=== PATIENT | male | born 1955 | race Asian ===

== ENCOUNTER 2019-08-19 06:20 | Inpatient (IN) ==
--- NOTE | 2019-08-19 06:42 | DR.EXTPAIN ---
HPI Time seen Time Seen by Provider: 08/19/19 06:40 PCP Primary Care Physician: ANG HPI Comment HPI Comment: PATIENT IS 64YR OLD MALE IN ER WITH INCREASING SWELLING AND REDNESS AND PAIN RIGHT FOOT AND ANKLE DUE TO PUNCTURE WOUND SUSTAINED FEW WEEKS AGO. PATIENT IS CURRENTLY ON AUDMENTING. DENIES FEVER. SLIGHT DRAINAGE AT PUNCTURE WOUND SITE. PAIN IS THROBBING 7/10 PAIN RADIATING TO RIGHT LEG. Complaint/Symptoms Chief Complaint Doctor Comments: RIGHT FOOT SWELLING, REDNESS AND PAIN TIMES 18 DAYS. Chief Complaint:: PATIENT AMBULATORY INTO TRIAGE WITH C/O CELLULITIS TO RIGHT FOOT; PATIENT WAS AT THIS ER ONE WEEK AGO AND RECEIVED PRESCRIPTION FOR ANTIBIOTIC. PATIENT STATES IT IS NOT ANY BETTER. REDNESS NOTED TO TOP OF RIGHT FOOT; PATIENT STATES PAIN IS 7/10. PATIENT HAS HX OF DIABETES COVID-19 Coronavirus risk:travel/contact w/high risk person: No Has patient experienced Coronavirus symptoms: No Nurses notes reviewed Nurses Notes Review: Yes Source History Provided: Family Member Mode of arrival Mode of Arrival: Ambulatory Timing Onset of Chief Complaint: 08/11/19 Context History of: None Associated signs and symptoms Associated Signs and Symptoms: Pain and Swelling PMH PMH Past Medical History: Yes Past Medical History: Diabetes and Hypertension Past Surgical History: No Family History History of Family Medical Conditions: No Social History Alcohol Use: None Do you use any recreational Drugs:: No Lives With: Spouse Lives Where: Home Travel Risk Coronavirus risk:travel/contact w/high risk person: No Has patient experienced Coronavirus symptoms: No Infectious screening In the last 2 months have you had wt loss of >10#?: NO Have you had fever, night sweats or hemotysis?: No Have you traveled outside the country in the last 6 months?: No Isolation: Standard ROS Review of Systems Constitutional: No Symptoms Reported and See HPI; negative Fever, Weakness and Fatigue Eyes: No Symptoms Reported and See HPI ENTM: No Symptoms Reported and See HPI; negative Nose Discharge, Nose Congestion and Throat Pain Respiratoy: No Symptoms Reported and See HPI; negative Moist Cough, Short of Breath and Wheezing Cardiovascular: No Symptoms Reported, See HPI and Edema (RIGHT FOOT AND ANKLE.); negative Chest Pain and Palpitations Gastrointestinal/Abdominal: No Symptoms Reported and See HPI; negative Abdominal Pain, Diarrhea, Nausea and Vomiting Genitourinary: No Symptoms Reported and See HPI; negative Dysuria, Frequency and Hematuria Neurological: No Symptoms Reported and See HPI; negative Headache, Weakness and Dizziness Musculoskeletal: No Symptoms Reported and See HPI; negative Back Pain Integumentary: See HPI, Change in Color and Wound (ABSCESS AND CELLULITIS RT FOOT AND ANKLE.) Hematologic/Lymphatic: No Symptoms Reported and See HPI; negative Easy Bruising and Swollen Glands Endocrine: No Symptoms Reported; negative Increased Thirst and Increased Urine Psychiatric: No Symptoms Reported and See HPI All Other Systems: Reviewed and Negative PE Vital Signs Vitals: Temperature 97.6 F Pulse Rate 98 Respiratory Rate 20 Blood Pressure [Left Arm] 192/89 Blood Pressure 173/74 O2 Sat by Pulse Oximetry 95 General Limitations: Language Barrier (PATIENT SPEAK [place], NO ENFLISH. SPOKE TO HIM VIA COMB CAPPER.) General Appearance: Alert and In No Apparent Distress Head Head Exam: Normal Inspection and Atraumatic Eyes Eye exam: Normal Appearance and PERRL; negative Scleral Icterus and Conjunctival Injection ENT ENT Exam: Normal Exam, Normal Oropharynx, Normal External Ear Exam and TM's Normal Bilaterally Neck Neck Exam: Normal Inspection and Trachea Midline; negative Tenderness and Lymphadenopathy Chest Chest Inspection: Normal Inspection and Symmetric Chest Wall Rise; negative Tenderness Respiratory Respiratory Exam: Normal Lung Sounds Bilat; negative Accessory Muscle Use, Chest Wall Tenderness and Respiratory Distress Respiratory Exam: Bilateral: Clear to Auscultation Cardiovascular Cardiovascular Exam: Regular Rate, Normal Rhythm and Normal Heart Sounds; negative Systolic Murmur and Diastolic Murmur Abdominal Exam Abdominal Exam: Normal Inspection, Normal Bowel Sounds and Soft; negative Tenderness Extremities Extremities Exam: Tenderness (RIGHT FOOT AND ANKLE TENDERNESS AND SWELLING.) and Normal Capillary Refill; negative Edema and Calf Tenderness Lower Extremities Ankle Exam: Tenderness, Swelling and Erythema Back Back Exam: Normal Inspection; negative (R) CVA Tenderness and (L) CVA Tenderness MDM Differential Diagnosis Differential Diagnosis: Other (ABSCESS, CELLULITIS RIGHT FOOT AND ANKLE.) COURSE Treatment Treatment: SEE ORDERS. VANCOMYCIN 1GM IVPB. NS 125CC/HR. ROR Labs Reviewed Laboratory Results Reviewed?: Yes Result Diagrams: 08/20/19 04:12 08/20/19 20:27 Laboratory: WBC 10.2 X10^3/uL (3.6-10.0) H 08/19/19 07:08 RBC 5.71 X10^6/uL (4.7-6.0) 08/19/19 07:08 Hgb 16.1 g/dL (13.5-18.0) 08/19/19 07:08 Hct 46.7 % (42.0-54.0) 08/19/19 07:08 MCV 81.8 fL (80.0-100.0) 08/19/19 07:08 MCH 28.1 pg (27.0-34.0) 08/19/19 07:08 MCHC 34.4 g/dL (33.0-35.0) 08/19/19 07:08 RDW 13.2 % (11.6-16.5) 08/19/19 07:08 Plt Count 272 X10^3/uL (150.0-450.0) 08/19/19 07:08 MPV 7.4 fL (7.4-11.0) 08/19/19 07:08 Neut % (Auto) 74.1 % (42.0-75.0) 08/19/19 07:08 Lymph % (Auto) 15.9 % (21.0-51.0) L 08/19/19 07:08 [place] % (Auto) 8.8 % (0.0-13.0) 08/19/19 07:08 Eos % (Auto) 0.3 % (0.9-2.9) L 08/19/19 07:08 Baso % (Auto) 0.9 % (0.2-1.0) 08/19/19 07:08 Neut # (Auto) 7.5 x10^3/uL (2.2-4.8) H 08/19/19 07:08 Lymph # (Auto) 1.6 X10^3/uL (1.3-2.9) 08/19/19 07:08 [place] # (Auto) 0.9 x10^3/uL (0.3-0.8) H 08/19/19 07:08 Eos # (Auto) 0.0 x10^3/uL (0.0-0.2) 08/19/19 07:08 Baso # (Auto) 0.1 X10^3/uL (0.0-0.1) 08/19/19 07:08 Absolute Nucleated RBC 0.1 /100WBC 08/19/19 07:08 Sodium 133 mmol/L (136-145) L 08/19/19 07:08 Corrected Sodium 141 mmol/L (136-145) 08/19/19 07:08 Potassium 4.4 mmol/L (3.5-5.1) 08/19/19 07:08 Chloride 96 mmol/L (98-107) L 08/19/19 07:08 Carbon Dioxide 25.9 mmol/L (21-32) 08/19/19 07:08 BUN 13 mg/dL (7-18) 08/19/19 07:08 Creatinine 0.81 mg/dL (0.70-1.30) 08/19/19 07:08 Est GFR (MDRD) Af Amer > 60 (>60) 08/19/19 07:08 Est GFR (MDRD) Non-Af > 60 (>60) 08/19/19 07:08 Glucose 447 mg/dL (65-99) H 08/19/19 07:08 Lactic Acid 1.6 mmol/L (0.4-2.0) 08/19/19 07:08 Calcium 9.2 mg/dL (8.5-10.1) 08/19/19 07:08 Corrected Calcium 9.8 mg/dL (8.5-10.1) 08/19/19 07:08 Total Bilirubin 0.60 mg/dL (0.2-1.0) 08/19/19 07:08 AST 9 Units/L (15-37) L 08/19/19 07:08 ALT 16 Units/L (12-78) 08/19/19 07:08 Alkaline Phosphatase 150 Units/L (46-116) H 08/19/19 07:08 C-Reactive Protein 71.60 mg/L (0-3.0) H 08/19/19 07:08 Total Protein 7.8 g/dL (6.4-8.2) 08/19/19 07:08 Albumin 3.3 g/dL (3.4-5.0) L 08/19/19 07:08 Globulin 4.5 g/dL (2.5-4.5) 08/19/19 07:08 Albumin/Globulin Ratio 0.7 Ratio (1.1-2.1) L 08/19/19 07:08 Acetone, Semi-Quant Negative (NEGATIVE) 08/19/19 07:08 Opioid Opioid Risk Tool Age ([place] if 16-45): No History of Preadolescent Sexual Abuse: No Total: 0 Total Score Risk Category: Low Risk Copyright: Wolfgang KEENAN predicting aberrant behaviors Diagnosis Discharge Problem: Cellulitis of foot, right, Abscess of right foot, Hyperglycemia Hypertension Qualifiers: Hypertension type: essential hypertension Qualified Code(s): I10 - Essential (primary) hypertension Instructions Forms: Excuse From Work Precautions for COVID19 Patient Portal Social Distancing
--- NOTE | 2019-08-19 07:10 | RAD ---
HISTORYCELLULITIS RT FOOT, PAIN AND REDNESS TO TOP OF RT FOOT X 1 WEEKSTUDYFOOT, RIGHT x-ray three viewsCOMPARISONNoneFINDINGSNo fracture or dislocation.Soft tissue swelling is seen in the dorsum of the foot. No radiopaque foreign body or gas is seen.No arthritic change are seen.IMPRESSIONSoft tissue swelling without evidence of bony abnormality.Electronically signed by: River Salamanca (August 19, 2019 07:09:02)
[2019-08-19 07:26] LABS: BASOPHILS # (AUTO) 0.1 X10^3/uL (0.0-0.1); BASOPHILS % (AUTO) 0.9 % (0.2-1.0); EOSINOPHILS % (AUTO) 0.3 % (0.9-2.9); HEMATOCRIT 46.7 % (42.0-54.0); HEMOGLOBIN 16.1 g/dL (13.5-18.0); LYMPHOCYTES # (AUTO) 1.6 X10^3/uL (1.3-2.9); LYMPHOCYTES % (AUTO) 15.9 % (21.0-51.0); MEAN CORPUSCULAR HEMOGLOBIN 28.1 pg (27.0-34.0); MEAN CORPUSCULAR HGB CONC 34.4 g/dL (33.0-35.0); MEAN CORPUSCULAR VOLUME 81.8 fL (80.0-100.0); MEAN PLATELET VOLUME 7.4 fL (7.4-11.0); MONOCYTES # (AUTO) 0.9 x10^3/uL (0.3-0.8); MONOCYTES % (AUTO) 8.8 % (0.0-13.0); NEUTROPHILS # (AUTO) 7.5 x10^3/uL (2.2-4.8); NEUTROPHILS % (AUTO) 74.1 % (42.0-75.0); PLATELET COUNT 272 X10^3/uL (150.0-450.0); RED BLOOD COUNT 5.71 X10^6/uL (4.7-6.0); RED CELL DISTRIBUTION WIDTH 13.2 % (11.6-16.5); WHITE BLOOD COUNT 10.2 X10^3/uL (3.6-10.0)
[2019-08-19 07:36] LABS: ALANINE AMINOTRANSFERASE 16 Units/L (12-78); ALBUMIN 3.3 g/dL (3.4-5.0); ALKALINE PHOSPHATASE 150 Units/L (46-116); ASPARTATE AMINO TRANSFERASE 9 Units/L (15-37); BLOOD UREA NITROGEN 13 mg/dL (7-18); CALCIUM 9.2 mg/dL (8.5-10.1); CARBON DIOXIDE 25.9 mmol/L (21-32); CHLORIDE 96 mmol/L (98-107); COR CA(FOR HYPOALB) 9.8 mg/dL (8.5-10.1); COR NA(FOR HYPERGLY) 141 mmol/L (136-145); CREATININE 0.81 mg/dL (0.70-1.30); SODIUM 133 mmol/L (136-145); TOTAL PROTEIN 7.8 g/dL (6.4-8.2); eGFR NON BLACK RACES > 60 (>60)
[2019-08-19] MEDS ORDERED: NS 250 ML IV 250 ML IV ONE ×2 (08:25→08:27)
[2019-08-19] MEDS ORDERED: VANCOMYCIN HCL ONE (08:25)
[2019-08-19] MEDS: VANCOMYCIN HCL 1 G in D5W 250 ML IV 250 ML IV ONE ×2 (08:33→08:34)
[2019-08-19] MEDS ORDERED: HumuLIN R SC PRN (11:46)
[2019-08-19] MEDS ORDERED: ZESTRIL TAB 10 MG PO SCH (12:00)
[2019-08-19] MEDS ORDERED: MOTRIN TAB 600 MG PO PRN (12:02)
[2019-08-19] MEDS ORDERED: MORPHINE SULFATE INJ 2 MG INJ IVP PRN (12:02)
[2019-08-19] MEDS ORDERED: VANCOMYCIN HCL 1 G in D5W 250 ML IV 250 ML IV SCH (12:02)
[2019-08-19] MEDS ORDERED: ZOFRAN TAB 4 MG PO PRN (12:02)
[2019-08-19] MEDS: NS 1000 ML 1,000 ML IV SCH ×2 (12:45→19:57)
[2019-08-19] MEDS: ZESTRIL TAB 10 MG PO SCH (13:55)
[2019-08-19] MEDS: PERCOCET TAB 5/325 MG PO PRN ×2 (13:58→23:43)
[2019-08-19] MEDS: HumuLIN R SC PRN ×3 (14:15→21:30)
[2019-08-19] MEDS ORDERED: ADACEL or BOOSTRIX TDaP VACCINE IM ONE (14:23)
[2019-08-19] MEDS: WOUND CARE XX SCH (18:00)
[2019-08-19] MEDS ORDERED: ZOCOR TAB 20 MG PO SCH (21:00)
[2019-08-19] MEDS: VANCOMYCIN HCL 1 G in NS 250 ML IV 250 ML IV SCH (21:14)
[2019-08-19] MEDS: ZOCOR TAB 20 MG PO SCH (21:14)
[2019-08-20] MEDS: NS 1000 ML 1,000 ML IV SCH ×3 (00:40→13:42)
[2019-08-20] MEDS: WOUND CARE XX SCH ×2 (01:44→13:42)
[2019-08-20 05:21] LABS: BASOPHILS % (AUTO) 0.4 % (0.2-1.0); EOSINOPHILS # (AUTO) 0.1 x10^3/uL (0.0-0.2); EOSINOPHILS % (AUTO) 0.8 % (0.9-2.9); HEMATOCRIT 41.1 % (42.0-54.0); HEMOGLOBIN 14.1 g/dL (13.5-18.0); LYMPHOCYTES # (AUTO) 2.3 X10^3/uL (1.3-2.9); LYMPHOCYTES % (AUTO) 26.9 % (21.0-51.0); MEAN CORPUSCULAR HEMOGLOBIN 27.9 pg (27.0-34.0); MEAN CORPUSCULAR HGB CONC 34.3 g/dL (33.0-35.0); MEAN CORPUSCULAR VOLUME 81.5 fL (80.0-100.0); MEAN PLATELET VOLUME 7.6 fL (7.4-11.0); MONOCYTES # (AUTO) 0.8 x10^3/uL (0.3-0.8); MONOCYTES % (AUTO) 8.9 % (0.0-13.0); NEUTROPHILS # (AUTO) 5.5 x10^3/uL (2.2-4.8); PLATELET COUNT 243 X10^3/uL (150.0-450.0); RED BLOOD COUNT 5.04 X10^6/uL (4.7-6.0); RED CELL DISTRIBUTION WIDTH 13.2 % (11.6-16.5); WHITE BLOOD COUNT 8.7 X10^3/uL (3.6-10.0)
[2019-08-20 05:31] LABS: ALANINE AMINOTRANSFERASE 15 Units/L (12-78); ALBUMIN 2.7 g/dL (3.4-5.0); ALKALINE PHOSPHATASE 120 Units/L (46-116); ASPARTATE AMINO TRANSFERASE 10 Units/L (15-37); BLOOD UREA NITROGEN 14 mg/dL (7-18); CALCIUM 8.5 mg/dL (8.5-10.1); CARBON DIOXIDE 26.8 mmol/L (21-32); CHLORIDE 100 mmol/L (98-107); COR CA(FOR HYPOALB) 9.5 mg/dL (8.5-10.1); COR NA(FOR HYPERGLY) 139 mmol/L (136-145); CREATININE 0.76 mg/dL (0.70-1.30); SODIUM 135 mmol/L (136-145); TOTAL PROTEIN 6.5 g/dL (6.4-8.2); eGFR NON BLACK RACES > 60 (>60)
[2019-08-20] MEDS: HumuLIN R SC PRN ×4 (06:11→21:30)
[2019-08-20] MEDS: ZESTRIL TAB 10 MG PO SCH (09:04)
[2019-08-20] MEDS: VANCOMYCIN HCL 1 G in NS 250 ML IV 250 ML IV SCH (09:04)
[2019-08-20 10:17] VITALS: BMI 29.5
--- NOTE | 2019-08-20 10:32 | DR.H&P ---
H&P History & Physical for Day of: H&P Date: 08/19/19 Chief Complaint Chief Complaint: Foot pain and redness Allergies Allergies Allergy/AdvReac Type Severity Reaction Status Date / Time No Known Drug Allergies Allergy Verified 08/10/19 21:43 History of Present Illness History of Present Illness: Patient presents due to right foot injury that occurred a week ago while he was working in the yard. He had a nail punctured on top of the foot. He came to the ED then and had X-ray done which showed soft tissue swelling. He was given oral antibiotics. His foot has been worsening since then with increased pain and swelling. He also noticed some drainage. Denies fever or chills. He has a hx of uncontrolled diabetes. Ed work up: repeat X-ray : no bony destruction. Crp elevated. Started on IV Vanc and fluids. Plan: continue antibiotics, follow cultures , [place] area and monitor. Resume home medication. Add SSI and pain control. Give Tdap. Past Medical History Past Medical History: Diabetes and Hypertension Past Surgical History Surgical History: Other Family History Family Medical History: Diabetes Mellitus Social History Does patient currently use any type of tobacco product: No Have you used tobacco products in the last 12 months: No Type of Tobacco Use: None Does any household member use tobacco: No Alcohol Use: None Drug Use: None Prescription drug monitoring program results: PDMP was not reviewed Medications Home Medications: No Known Drug Allergies Allergy (Verified 08/10/19 21:43) CONTINUE taking the following medications amoxicillin-pot clavulanate [Augmentin] 1 tab PO BID 08/19/19 [History] glipizide 5 mg PO DAILY 08/19/19 [History] lisinopril 10 mg PO DAILY 08/19/19 [History] metformin 500 mg PO BID 08/19/19 [History] Labs Result Diagrams: 08/20/19 04:12 08/20/19 04:12 Labs: Laboratory WBC 8.7 X10^3/uL (3.6-10.0) 08/20/19 04:12 RBC 5.04 X10^6/uL (4.7-6.0) 08/20/19 04:12 Hgb 14.1 g/dL (13.5-18.0) D 08/20/19 04:12 Hct 41.1 % (42.0-54.0) L 08/20/19 04:12 MCV 81.5 fL (80.0-100.0) 08/20/19 04:12 MCH 27.9 pg (27.0-34.0) 08/20/19 04:12 MCHC 34.3 g/dL (33.0-35.0) 08/20/19 04:12 RDW 13.2 % (11.6-16.5) 08/20/19 04:12 Plt Count 243 X10^3/uL (150.0-450.0) 08/20/19 04:12 MPV 7.6 fL (7.4-11.0) 08/20/19 04:12 Neut % (Auto) 63.0 % (42.0-75.0) 08/20/19 04:12 Lymph % (Auto) 26.9 % (21.0-51.0) 08/20/19 04:12 [place] % (Auto) 8.9 % (0.0-13.0) 08/20/19 04:12 Eos % (Auto) 0.8 % (0.9-2.9) L 08/20/19 04:12 Baso % (Auto) 0.4 % (0.2-1.0) 08/20/19 04:12 Neut # (Auto) 5.5 x10^3/uL (2.2-4.8) H 08/20/19 04:12 Lymph # (Auto) 2.3 X10^3/uL (1.3-2.9) 08/20/19 04:12 [place] # (Auto) 0.8 x10^3/uL (0.3-0.8) 08/20/19 04:12 Eos # (Auto) 0.1 x10^3/uL (0.0-0.2) 08/20/19 04:12 Baso # (Auto) 0.0 X10^3/uL (0.0-0.1) 08/20/19 04:12 Absolute Nucleated RBC 0.0 /100WBC 08/20/19 04:12 Sodium 135 mmol/L (136-145) L 08/20/19 04:12 Corrected Sodium 139 mmol/L (136-145) 08/20/19 04:12 Potassium 3.9 mmol/L (3.5-5.1) 08/20/19 04:12 Chloride 100 mmol/L (98-107) 08/20/19 04:12 Carbon Dioxide 26.8 mmol/L (21-32) 08/20/19 04:12 BUN 14 mg/dL (7-18) 08/20/19 04:12 Creatinine 0.76 mg/dL (0.70-1.30) 08/20/19 04:12 Est GFR (MDRD) Af Amer > 60 (>60) 08/20/19 04:12 Est GFR (MDRD) Non-Af > 60 (>60) 08/20/19 04:12 Glucose 272 mg/dL (65-99) H 08/20/19 04:12 Lactic Acid 1.6 mmol/L (0.4-2.0) 08/19/19 07:08 Calcium 8.5 mg/dL (8.5-10.1) 08/20/19 04:12 Corrected Calcium 9.5 mg/dL (8.5-10.1) 08/20/19 04:12 Total Bilirubin 0.40 mg/dL (0.2-1.0) 08/20/19 04:12 AST 10 Units/L (15-37) L 08/20/19 04:12 ALT 15 Units/L (12-78) 08/20/19 04:12 Alkaline Phosphatase 120 Units/L (46-116) H 08/20/19 04:12 C-Reactive Protein 71.60 mg/L (0-3.0) H 08/19/19 07:08 Total Protein 6.5 g/dL (6.4-8.2) 08/20/19 04:12 Albumin 2.7 g/dL (3.4-5.0) L 08/20/19 04:12 Globulin 3.8 g/dL (2.5-4.5) 08/20/19 04:12 Albumin/Globulin Ratio 0.7 Ratio (1.1-2.1) L 08/20/19 04:12 Acetone, Semi-Quant Negative (NEGATIVE) 08/19/19 07:08 Review of Systems Constitutional: No Symptoms Reported Eyes: No Symptoms Reported ENT: No Symptoms Reported Respiratory: No Symptoms Reported Cardiovascular: No Symptoms Reported Gastrointestinal: No Symptoms Reported Genitourinary: No Symptoms Reported Musculoskeletal: Foot Pain Skin: Wound Neurological: No Symptoms Reported Physical Exam Vital Signs: Temperature 97.8 F Pulse Rate [Right Brachial] 70 Pulse Rate [Left Brachial] 80 Pulse Rate 98 Respiratory Rate 18 Blood Pressure [Left Arm] 197/87 Blood Pressure 173/74 O2 Sat by Pulse Oximetry 98 Oriented: Normal Eyes: Normal Respiratory: Clear Throughout Cardiovascular: Normal Auscultation: Bowel Sounds: Normal Palpation: Normal Tenderness: Normal Skin: Wound and Other (Right foot erythrmatous, puntcure wound present, warm , tender ) Musculoskeletal: Normal Psychiatric: Normal Mood Description: Calm Affect: Normal Speech Pattern: Clear and Appropriate Assessment/Plan (1) Cellulitis of right foot: Status: Acute (2) Puncture wound of foot, right: Qualifiers: Encounter type: initial encounter Qualified Code(s): S91.331A - Puncture wound without foreign body, right foot, initial encounter Status: Acute (3) Hypertension, uncontrolled: Status: Acute (4) Uncontrolled diabetes mellitus: Qualifiers: Diabetes mellitus type: type 2 Glycemic state: with hyperglycemia Qualified Code(s): E11.65 - Type 2 diabetes mellitus with hyperglycemia Status: Acute Review H&P Reviewed: Yes Patient was examined?: Yes
[2019-08-20] MEDS: NORVASC TAB 10 MG PO SCH (13:42)
[2019-08-20] MEDS: ZESTRIL TAB 40 MG PO SCH (13:43)
[2019-08-20] MEDS: PERCOCET TAB 5/325 MG PO PRN (17:15)
[2019-08-20 20:57] LABS: CREATININE 0.73 mg/dL (0.70-1.30); VANCOMYCIN,TROUGH 4.5 ug/mL (15-20)
[2019-08-20] MEDS: ZOCOR TAB 20 MG PO SCH (21:26)
[2019-08-20] MEDS ORDERED: PHARMACY CONSULT - VANCOMYCIN XX SCH (21:34)
[2019-08-20] MEDS: VANCOMYCIN HCL 1 G in D5W 250 ML IV 250 ML IV SCH (21:56)
[2019-08-21] MEDS: WOUND CARE XX SCH ×3 (03:00→12:59)
[2019-08-21] MEDS: NS 1000 ML 1,000 ML IV SCH ×4 (04:56→21:32)
[2019-08-21] MEDS: VANCOMYCIN HCL 1 G in D5W 250 ML IV 250 ML IV SCH ×2 (05:13→13:05)
[2019-08-21] MEDS: HumuLIN R SC PRN ×4 (05:36→21:33)
[2019-08-21 06:12] LABS: BASOPHILS # (AUTO) 0.1 X10^3/uL (0.0-0.1); BASOPHILS % (AUTO) 0.7 % (0.2-1.0); EOSINOPHILS # (AUTO) 0.1 x10^3/uL (0.0-0.2); EOSINOPHILS % (AUTO) 0.6 % (0.9-2.9); HEMATOCRIT 41.9 % (42.0-54.0); HEMOGLOBIN 14.4 g/dL (13.5-18.0); LYMPHOCYTES # (AUTO) 2.2 X10^3/uL (1.3-2.9); LYMPHOCYTES % (AUTO) 20.8 % (21.0-51.0); MEAN CORPUSCULAR HEMOGLOBIN 28.1 pg (27.0-34.0); MEAN CORPUSCULAR HGB CONC 34.3 g/dL (33.0-35.0); MEAN CORPUSCULAR VOLUME 81.8 fL (80.0-100.0); MEAN PLATELET VOLUME 7.8 fL (7.4-11.0); MONOCYTES # (AUTO) 0.9 x10^3/uL (0.3-0.8); MONOCYTES % (AUTO) 8.5 % (0.0-13.0); NEUTROPHILS # (AUTO) 7.4 x10^3/uL (2.2-4.8); NEUTROPHILS % (AUTO) 69.4 % (42.0-75.0); PLATELET COUNT 251 X10^3/uL (150.0-450.0); RED BLOOD COUNT 5.13 X10^6/uL (4.7-6.0); RED CELL DISTRIBUTION WIDTH 12.9 % (11.6-16.5); WHITE BLOOD COUNT 10.7 X10^3/uL (3.6-10.0)
[2019-08-21 06:27] LABS: ALANINE AMINOTRANSFERASE 16 Units/L (12-78); ALBUMIN 2.7 g/dL (3.4-5.0); ALKALINE PHOSPHATASE 94 Units/L (46-116); ASPARTATE AMINO TRANSFERASE 12 Units/L (15-37); BLOOD UREA NITROGEN 8 mg/dL (7-18); CALCIUM 8.5 mg/dL (8.5-10.1); CARBON DIOXIDE 28.4 mmol/L (21-32); CHLORIDE 97 mmol/L (98-107); COR CA(FOR HYPOALB) 9.5 mg/dL (8.5-10.1); COR NA(FOR HYPERGLY) 137 mmol/L (136-145); SODIUM 133 mmol/L (136-145); TOTAL PROTEIN 6.5 g/dL (6.4-8.2); eGFR NON BLACK RACES > 60 (>60)
[2019-08-21 06:35] LABS: PLATELET MORPHOLOGY COMMENT NORMAL (NORMAL)
[2019-08-21] MEDS: ZESTRIL TAB 40 MG PO SCH (09:15)
[2019-08-21] MEDS: NORVASC TAB 10 MG PO SCH (09:15)
[2019-08-21] MEDS ORDERED: NORCO 10/325 TAB PO PRN (12:40)
[2019-08-21] MEDS ORDERED: TOPROL XL PO ONE (13:01)
[2019-08-21] MEDS: GLUCOPHAGE XR 24-HR PO SCH ×2 (13:05→21:32)
[2019-08-21] MEDS: ACTOS PO SCH (13:06)
[2019-08-21] MEDS: TOPROL XL PO SCH (13:06)
[2019-08-21] MEDS ORDERED: PHARMACY COMMENT IV NR (20:30)
[2019-08-21 20:49] LABS: CREATININE 0.81 mg/dL (0.70-1.30); VANCOMYCIN,TROUGH 9.7 ug/mL (15-20)
[2019-08-21] MEDS ORDERED: NS 250 ML IV 250 ML IV ONE (21:15)
[2019-08-21] MEDS ORDERED: VANCOMYCIN HCL ONE ×2 (21:15→21:16)
[2019-08-21] MEDS: ZOCOR TAB 20 MG PO SCH (21:32)
[2019-08-21] MEDS: VANCOMYCIN HCL 1 G in NS 250 ML IV 250 ML IV SCH (21:33)
[2019-08-21] MEDS: VANCOMYCIN HCL 250 MG, VANCOMYCIN HCL 1 G in D5W 250 ML IV 250 ML IV SCH (21:33)
[2019-08-22] MEDS: WOUND CARE XX SCH (04:26)
[2019-08-22] MEDS: NS 1000 ML 1,000 ML IV SCH (04:27)
[2019-08-22 05:07] LABS: BASOPHILS % (AUTO) 0.4 % (0.2-1.0); EOSINOPHILS % (AUTO) 0.4 % (0.9-2.9); HEMATOCRIT 40.4 % (42.0-54.0); LYMPHOCYTES % (AUTO) 20.9 % (21.0-51.0); MEAN CORPUSCULAR HEMOGLOBIN 28.5 pg (27.0-34.0); MEAN CORPUSCULAR HGB CONC 34.6 g/dL (33.0-35.0); MEAN CORPUSCULAR VOLUME 82.4 fL (80.0-100.0); MEAN PLATELET VOLUME 7.7 fL (7.4-11.0); MONOCYTES # (AUTO) 0.9 x10^3/uL (0.3-0.8); MONOCYTES % (AUTO) 9.2 % (0.0-13.0); NEUTROPHILS # (AUTO) 6.7 x10^3/uL (2.2-4.8); NEUTROPHILS % (AUTO) 69.1 % (42.0-75.0); PLATELET COUNT 258 X10^3/uL (150.0-450.0); RED CELL DISTRIBUTION WIDTH 13.1 % (11.6-16.5); WHITE BLOOD COUNT 9.6 X10^3/uL (3.6-10.0)
[2019-08-22 05:12] LABS: ALANINE AMINOTRANSFERASE 15 Units/L (12-78); ALBUMIN 2.6 g/dL (3.4-5.0); ALKALINE PHOSPHATASE 97 Units/L (46-116); ASPARTATE AMINO TRANSFERASE 13 Units/L (15-37); BLOOD UREA NITROGEN 11 mg/dL (7-18); CALCIUM 8.6 mg/dL (8.5-10.1); CARBON DIOXIDE 26.7 mmol/L (21-32); CHLORIDE 99 mmol/L (98-107); COR CA(FOR HYPOALB) 9.7 mg/dL (8.5-10.1); COR NA(FOR HYPERGLY) 139 mmol/L (136-145); CREATININE 0.62 mg/dL (0.70-1.30); SODIUM 135 mmol/L (136-145); TOTAL PROTEIN 6.4 g/dL (6.4-8.2); eGFR NON BLACK RACES > 60 (>60)
[2019-08-22] MEDS ORDERED: NS 250 ML IV 250 ML IV ONE (05:41)
[2019-08-22] MEDS ORDERED: VANCOMYCIN HCL ONE ×2 (05:41)
[2019-08-22] MEDS: VANCOMYCIN HCL 250 MG, VANCOMYCIN HCL 1 G in D5W 250 ML IV 250 ML IV SCH ×2 (05:57→05:58)
[2019-08-22] MEDS: HumuLIN R SC PRN ×2 (05:58→11:44)
[2019-08-22 08:06] VITALS: BP 143/64
[2019-08-22] MEDS ORDERED: TOPROL XL PO ONE (08:15)
[2019-08-22] MEDS: NORVASC TAB 10 MG PO SCH (08:19)
[2019-08-22] MEDS: ZESTRIL TAB 40 MG PO SCH (08:19)
[2019-08-22] MEDS: GLUCOPHAGE XR 24-HR PO SCH (08:20)
[2019-08-22] MEDS: ACTOS PO SCH (08:20)
[2019-08-22] MEDS: TOPROL XL PO SCH (08:20)
--- NOTE | 2019-08-22 10:21 | W.DIS.FURT ---
Summary of Discharge Discharge Summary of Date Date of Exam: 08/22/19 Admission Date Date of Admission: 08/19/19 Admission Diagnosis Hospital Course: Patient presents due to right foot injury that occurred a week ago while he was working in the yard. He had a nail punctured on top of the foot. He came to the ED then and had X-ray done which showed soft tissue swelling. He was given oral antibiotics. His foot has been worsening since then with increased pain and swelling. Denies fever or chills. He has a hx of uncontrolled diabetes. Repeat X-ray : no bony destruction. Crp elevated. He was started on IV Vanc and fluids. Blood cultures were collected and area was marked to monitor. His diabetic medications and BP medications were optimized due to uncontrolled hyperglycemia and blood pressure. He was given a Tdap vaccination. His blood cultures remained negative. His foot erythema was improving with the antibiotics. He was transitioned to oral abx and disharged home. He will follow up with PCP as scheduled. Vital Signs: Vital Signs (72 hours) 08/19/19 11:12 08/19/19 11:46 08/19/19 12:00 Temperature 98.3 F 98.3 F Pulse Rate [Left Brachial] 81 80 80 Pulse Rate [Right Brachial] 80 80 Respiratory Rate 20 20 20 Blood Pressure [Left Arm] 195/80 183/81 183/81 O2 Sat by Pulse Oximetry 95 08/19/19 13:58 08/19/19 14:58 08/19/19 16:00 Temperature 98.5 F Pulse Rate [Left Brachial] Pulse Rate [Right Brachial] 85 Respiratory Rate 18 20 20 Blood Pressure [Left Arm] 180/81 O2 Sat by Pulse Oximetry 93 L 08/19/19 20:00 08/19/19 23:43 08/20/19 00:00 Temperature 97.5 F L 98.0 F Pulse Rate [Left Brachial] Pulse Rate [Right Brachial] 75 76 Respiratory Rate 20 20 20 Blood Pressure [Left Arm] 159/85 198/88 O2 Sat by Pulse Oximetry 96 97 08/20/19 00:43 08/20/19 04:00 08/20/19 08:00 Temperature 97.8 F 97.9 F Pulse Rate [Left Brachial] Pulse Rate [Right Brachial] 70 79 Respiratory Rate 20 18 20 Blood Pressure [Left Arm] 197/87 183/76 O2 Sat by Pulse Oximetry 98 98 08/20/19 12:00 08/20/19 16:00 08/20/19 17:15 Temperature 98.8 F 97.9 F Pulse Rate [Left Brachial] 85 Pulse Rate [Right Brachial] 88 Respiratory Rate 20 22 22 Blood Pressure [Left Arm] 208/93 201/72 O2 Sat by Pulse Oximetry 99 98 08/20/19 18:15 08/20/19 18:27 08/20/19 20:00 Temperature 98.5 F Pulse Rate [Left Brachial] Pulse Rate [Right Brachial] 89 Respiratory Rate 20 20 20 Blood Pressure [Left Arm] 161/67 157/72 O2 Sat by Pulse Oximetry 96 97 08/21/19 00:00 08/21/19 04:00 08/21/19 08:00 Temperature 98.0 F 98.2 F 98.7 F Pulse Rate [Left Brachial] Pulse Rate [Right Brachial] 80 84 82 Respiratory Rate 22 22 18 Blood Pressure [Left Arm] 174/77 169/77 185/82 O2 Sat by Pulse Oximetry 98 97 96 08/21/19 12:00 08/21/19 16:00 08/21/19 20:00 Temperature 98.6 F 97.6 F 98.8 F Pulse Rate [Left Brachial] Pulse Rate [Right Brachial] 86 79 72 Respiratory Rate 18 18 18 Blood Pressure [Left Arm] 167/74 152/71 148/71 O2 Sat by Pulse Oximetry 98 97 97 08/22/19 00:00 08/22/19 04:00 08/22/19 08:00 Temperature 98.6 F 98.7 F 98.5 F Pulse Rate [Left Brachial] Pulse Rate [Right Brachial] 61 68 67 Respiratory Rate 20 18 18 Blood Pressure [Left Arm] 171/76 159/72 143/64 O2 Sat by Pulse Oximetry 95 94 L 98 Labs: Laboratory Last Values WBC 9.6 X10^3/uL (3.6-10.0) 08/22/19 04:02 RBC 4.90 X10^6/uL (4.7-6.0) 08/22/19 04:02 Hgb 14.0 g/dL (13.5-18.0) 08/22/19 04:02 Hct 40.4 % (42.0-54.0) L 08/22/19 04:02 MCV 82.4 fL (80.0-100.0) 08/22/19 04:02 MCH 28.5 pg (27.0-34.0) 08/22/19 04:02 MCHC 34.6 g/dL (33.0-35.0) 08/22/19 04:02 RDW 13.1 % (11.6-16.5) 08/22/19 04:02 Plt Count 258 X10^3/uL (150.0-450.0) 08/22/19 04:02 Plt Count Comment Adequate (ADEQUATE) 08/21/19 05:30 MPV 7.7 fL (7.4-11.0) 08/22/19 04:02 Neut % (Auto) 69.1 % (42.0-75.0) 08/22/19 04:02 Lymph % (Auto) 20.9 % (21.0-51.0) L 08/22/19 04:02 [place] % (Auto) 9.2 % (0.0-13.0) 08/22/19 04:02 Eos % (Auto) 0.4 % (0.9-2.9) L 08/22/19 04:02 Baso % (Auto) 0.4 % (0.2-1.0) 08/22/19 04:02 Neut # (Auto) 6.7 x10^3/uL (2.2-4.8) H 08/22/19 04:02 Lymph # (Auto) 2.0 X10^3/uL (1.3-2.9) 08/22/19 04:02 [place] # (Auto) 0.9 x10^3/uL (0.3-0.8) H 08/22/19 04:02 Eos # (Auto) 0.0 x10^3/uL (0.0-0.2) 08/22/19 04:02 Baso # (Auto) 0.0 X10^3/uL (0.0-0.1) 08/22/19 04:02 Absolute Nucleated RBC 1.0 /100WBC 08/22/19 04:02 Plt Morphology Comment Normal (NORMAL) 08/21/19 05:30 RBC Morphology Normal (NORMAL) 08/21/19 05:30 Sodium 135 mmol/L (136-145) L 08/22/19 04:02 Corrected Sodium 139 mmol/L (136-145) 08/22/19 04:02 Potassium 3.8 mmol/L (3.5-5.1) 08/22/19 04:02 Chloride 99 mmol/L (98-107) 08/22/19 04:02 Carbon Dioxide 26.7 mmol/L (21-32) 08/22/19 04:02 BUN 11 mg/dL (7-18) 08/22/19 04:02 Creatinine 0.62 mg/dL (0.70-1.30) L 08/22/19 04:02 Est GFR (MDRD) Af Amer > 60 (>60) 08/22/19 04:02 Est GFR (MDRD) Non-Af > 60 (>60) 08/22/19 04:02 Glucose 253 mg/dL (65-99) H 08/22/19 04:02 Lactic Acid 1.6 mmol/L (0.4-2.0) 08/19/19 07:08 Calcium 8.6 mg/dL (8.5-10.1) 08/22/19 04:02 Corrected Calcium 9.7 mg/dL (8.5-10.1) 08/22/19 04:02 Total Bilirubin 0.40 mg/dL (0.2-1.0) 08/22/19 04:02 AST 13 Units/L (15-37) L 08/22/19 04:02 ALT 15 Units/L (12-78) 08/22/19 04:02 Alkaline Phosphatase 97 Units/L (46-116) 08/22/19 04:02 C-Reactive Protein 71.60 mg/L (0-3.0) H 08/19/19 07:08 Total Protein 6.4 g/dL (6.4-8.2) 08/22/19 04:02 Albumin 2.6 g/dL (3.4-5.0) L 08/22/19 04:02 Globulin 3.8 g/dL (2.5-4.5) 08/22/19 04:02 Albumin/Globulin Ratio 0.7 Ratio (1.1-2.1) L 08/22/19 04:02 Vancomycin Trough 9.7 ug/mL (15-20) L 08/21/19 20:06 Acetone, Semi-Quant Negative (NEGATIVE) 08/19/19 07:08 Reason For Visit: CELLULITIS RIGHT FOOT, INFECTED PUNCTURE WOUND RT Discharge Date Discharge Date: 08/22/19 Discharge Diagnosis All Active Problems (Updated 08/25/19 @ 09:42 by Aysha Del Angel) Cellulitis of foot, right (Acute) Abscess of right foot (Acute) Hyperglycemia (Acute) Hypertension (Acute) Cellulitis of right foot (Acute) Uncontrolled diabetes mellitus (Acute) Neck pain (Acute) Puncture wound of foot, right (Acute) Hypertension, uncontrolled (Acute) Plan of Treatment: Continue with present treatment and follow up plan. Pt is to keep follow up appointment as instructed and take medications as ordered. Discharge Medications Discharge Medications: No Known Drug Allergies Allergy (Verified 08/10/19 21:43) New Prescriptions amlodipine 10 mg PO DAILY 30 Days #30 tab 08/22/19 [Rx] doxycycline hyclate 100 mg PO BID 10 Days #20 cap 08/22/19 [Rx] hydrocodone-acetaminophen 1 tab PO Q8H PRN 5 Days #15 tab MDD 3 tabs 08/22/19 [Rx] lisinopril 40 mg PO DAILY 30 Days #30 tab 08/22/19 [Rx] metformin 1,000 mg PO BID 30 Days #60 tab 08/22/19 [Rx] metoprolol succinate 100 mg PO DAILY 30 Days #30 tab 08/22/19 [Rx] pioglitazone 30 mg PO DAILY 30 Days #30 tab 08/22/19 [Rx] simvastatin 20 mg PO HS 30 Days #30 tab 08/22/19 [Rx] Follow up and Referral Follow Up: 1 Week (PCP) Discharge Disposition Discharge Disposition: Home Discharge Condition: Stable
[2019-08-22] MEDS ORDERED: VANCOMYCIN HCL 250 MG, VANCOMYCIN HCL 1 G in D5W 250 ML IV 250 ML IV SCH (14:00)
[2019-08-22] MEDS ORDERED: PHARMACY COMMENT IV NR (21:30)
== END 2019-08-22 11:53 | disposition home or self-care (01) | DRG 603 ==
LOC: ER 06:20 → MED/SURG 10:18
PROVIDERS: ADMIT Internal Medicine; ATTEND Internal Medicine
CPT/HCPCS: 36415; 73630; 80053; 80202; 82009; 82565; 82947; 83605; 85025; 86140; 87040; 90715; 96365; 96367; 96374; 97166; 99284; A4222; J1815; J3370; J7030; J7050; J7060

== ENCOUNTER 2022-05-27 10:09 | Inpatient (IN) ==
[2022-05-27] MEDS ORDERED: PERCOCET TAB 5/325 MG PO PRN (11:40)
--- NOTE | 2022-05-27 11:40 | DR.UPDATE ---
H&P UPDATE Review Yes Any changes to H&P?: Yes
[2022-05-27] MEDS ORDERED: LR 1,000 ML IV 1,000 ML IV SCH (12:00)
[2022-05-27 12:19] LABS: BASOPHILS % (AUTO) 0.6 % (0.2-1.0); EOSINOPHILS # (AUTO) 0.1 x10^3/uL (0.0-0.2); EOSINOPHILS % (AUTO) 0.9 % (0.9-2.9); HEMATOCRIT 42.7 % (42.0-54.0); HEMOGLOBIN 14.3 g/dL (13.5-18.0); LYMPHOCYTES # (AUTO) 1.4 X10^3/uL (1.3-2.9); LYMPHOCYTES % (AUTO) 23.5 % (21.0-51.0); MEAN CORPUSCULAR HEMOGLOBIN 27.4 pg (27.0-34.0); MEAN CORPUSCULAR HGB CONC 33.5 g/dL (33.0-35.0); MEAN CORPUSCULAR VOLUME 81.9 fL (80.0-100.0); MEAN PLATELET VOLUME 8.1 fL (7.4-11.0); MONOCYTES # (AUTO) 0.5 x10^3/uL (0.3-0.8); NEUTROPHILS # (AUTO) 4.1 x10^3/uL (2.2-4.8); RED BLOOD COUNT 5.21 X10^6/uL (4.7-6.0); RED CELL DISTRIBUTION WIDTH 14.6 % (11.6-16.5); WHITE BLOOD COUNT 6.1 X10^3/uL (3.6-10.0)
[2022-05-27 12:27] LABS: INR 1.15 (0.8-1.3)
--- NOTE | 2022-05-27 12:29 | EKG ---
Test Reason : cardiac clearance for surgery Blood Pressure : */* mmHG Vent. Rate : 57 BPM Atrial Rate : 57 BPM P-R Int : 204 ms QRS Dur : 94 ms QT Int : 444 ms P-R-T Axes : 13 25 28 degrees QTc Int : 432 ms Sinus bradycardia Otherwise normal ECG No previous ECGs available Confirmed by Alex Pelaez ([id number]) on 05/29/2022 8:16:37 AM Referred By: Confirmed By: Alex Pelaez
[2022-05-27 12:30] LABS: ALANINE AMINOTRANSFERASE 19 Units/L (12-78); ALBUMIN 3.7 g/dL (3.4-5.0); ALKALINE PHOSPHATASE 116 Units/L (46-116); ASPARTATE AMINO TRANSFERASE 22 Units/L (15-37); BLOOD UREA NITROGEN 20 mg/dL (7-18); CALCIUM 9.1 mg/dL (8.5-10.1); CARBON DIOXIDE 30.5 mmol/L (21-32); CHLORIDE 100 mmol/L (98-107); COR NA(FOR HYPERGLY) 139 mmol/L (136-145); CREATININE 0.71 mg/dL (0.70-1.30); SODIUM 137 mmol/L (136-145); TOTAL PROTEIN 7.4 g/dL (6.4-8.2); eGFR NON BLACK RACES > 60 (>60)
[2022-05-27] MEDS ORDERED: NovoLIN R (or HumuLIN R) SC PRN (13:23)
--- NOTE | 2022-05-27 15:55 | CT ---
HISTORYCRITICAL ISCHEMIA RT LEGSTUDYCTA AORTA WITH RUNOFFCOMPARISONNone available.TECHNIQUEAxial CT images of the abdomen, pelvis and lower extremities were obtained prior to and after the administration of IV contrast during the arterial phase. Images were reformatted with a 3D angiographic technique for further evaluation.Radiation dose: 1180.40 mGy-cm total DLPFINDINGSAorta: Atherosclerotic changes with no aneurysm. No clinically significant stenosis or occlusion.Mesenteric arteries/Celiac trunk: Atherosclerotic changes. No clinically significant stenosis, occlusion or aneurysm.Renal arteries: Atherosclerotic changes. No clinically significant stenosis, occlusion or aneurysm.Right iliac arteries: Atherosclerotic changes. No clinically significant stenosis, occlusion or aneurysm.Left iliac arteries: Atherosclerotic changes. No clinically significant stenosis, occlusion or aneurysm.Right femoral arteries/popliteal artery: Atherosclerotic changes. Stent in place from the mid SFA to the popliteal artery. SFA stent is occluded. Reconstitution in the mid to distal aspect of the popliteal artery.Left femoral arteries/popliteal artery: Atherosclerotic changes. No clinically significant stenosis, occlusion or aneurysm.Right infrapopliteal arteries: Atherosclerotic changes with stent in place in the proximal popliteal artery. Occlusion of the majority of the anterior tibial artery. Flow is preserved in the peroneal and posterior tibial arteries.Left infrapopliteal arteries: Atherosclerotic changes. Occlusion of the majority of the anterior tibial artery. Flow is preserved in the peroneal and posterior tibial arteries.Lung bases are clear.No acute osseous abnormality.Stomach and proximal small bowel appear normal.Diffuse fatty infiltration of the liver.Spleen, pancreas and adrenal glands are unremarkable.Gallbladder appears normal.No biliary dilatation.Homogeneous enhancement of the kidneys without hydronephrosis or hydroureter.No urinary calculus identified.Urinary bladder is unremarkable.Moderate stool burden from the cecum to the distal descending colon, otherwise, unremarkable appearance of the small and large bowel.No evidence of acute appendicitis.Reproductive structures are unremarkable.No pneumoperitoneum.No free intra-abdominal fluid.No adenopathy.Small fat containing left inguinal hernia without inflammatory changes.IMPRESSION1. No acute intra-abdominal abnormality identified.2. Stent in place from the mid right SFA to the popliteal artery. SFA stent is occluded. Reconstitution in the mid to distal aspect of the right popliteal artery.3. 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 Diffuse fatty infiltration of the liver.5. Moderate stool burden from the cecum to distal descending colon.Electronically signed by: Adolfo Fallon (May 27, 2022 15:54:16)
[2022-05-27] MEDS ORDERED: GLUCOPHAGE PO SCH (17:00)
[2022-05-27] MEDS ORDERED: HEPARIN SODIUM INJ 5000 UNITS IVP ONE (19:16)
[2022-05-27] MEDS ORDERED: HEPARIN SODIUM IN D5W 25,000 UNITS/500 ML BAG ONE (19:18)
[2022-05-27] MEDS ORDERED: HEPARIN SODIUM INJ 5000 UNITS ONE (19:18)
[2022-05-27] MEDS: HEPARIN SODIUM IN D5W 25,000 UNITS/500 ML BAG IV PRN (20:10)
[2022-05-27] MEDS: CRESTOR TAB 10 MG PO SCH (20:56)
--- NOTE | 2022-05-27 22:22 | EKG ---
Test Reason : preop clearance Blood Pressure : */* mmHG Vent. Rate : 59 BPM Atrial Rate : 59 BPM P-R Int : 220 ms QRS Dur : 84 ms QT Int : 426 ms P-R-T Axes : -12 32 39 degrees QTc Int : 421 ms Sinus bradycardia with 1st degree AV block Otherwise normal ECG When compared with ECG of 27-MAY-2022 12:21, (Unconfirmed) No significant change was found Confirmed by Alex Pelaez ([id number]) on 05/29/2022 8:15:38 AM Referred By: Confirmed By: Alex Pelaez
[2022-05-28 02:32] LABS: BASOPHILS # (AUTO) 0.2 X10^3/uL (0.0-0.1); BASOPHILS % (AUTO) 2.9 % (0.2-1.0); EOSINOPHILS # (AUTO) 0.1 x10^3/uL (0.0-0.2); EOSINOPHILS % (AUTO) 2.2 % (0.9-2.9); HEMATOCRIT 41.2 % (42.0-54.0); HEMOGLOBIN 13.9 g/dL (13.5-18.0); LYMPHOCYTES % (AUTO) 33.6 % (21.0-51.0); MEAN CORPUSCULAR HEMOGLOBIN 27.8 pg (27.0-34.0); MEAN CORPUSCULAR HGB CONC 33.8 g/dL (33.0-35.0); MEAN CORPUSCULAR VOLUME 82.3 fL (80.0-100.0); MEAN PLATELET VOLUME 8.1 fL (7.4-11.0); MONOCYTES # (AUTO) 0.6 x10^3/uL (0.3-0.8); MONOCYTES % (AUTO) 9.2 % (0.0-13.0); NEUTROPHILS # (AUTO) 3.1 x10^3/uL (2.2-4.8); NEUTROPHILS % (AUTO) 52.1 % (42.0-75.0); RED CELL DISTRIBUTION WIDTH 14.6 % (11.6-16.5)
[2022-05-28 02:41] LABS: ALANINE AMINOTRANSFERASE 16 Units/L (12-78); ALBUMIN 3.3 g/dL (3.4-5.0); ALKALINE PHOSPHATASE 105 Units/L (46-116); ASPARTATE AMINO TRANSFERASE 16 Units/L (15-37); BLOOD UREA NITROGEN 20 mg/dL (7-18); CARBON DIOXIDE 27.7 mmol/L (21-32); CHLORIDE 102 mmol/L (98-107); COR CA(FOR HYPOALB) 9.6 mg/dL (8.5-10.1); COR NA(FOR HYPERGLY) 139 mmol/L (136-145); CREATININE 0.63 mg/dL (0.70-1.30); SODIUM 138 mmol/L (136-145); TOTAL PROTEIN 6.6 g/dL (6.4-8.2); eGFR NON BLACK RACES > 60 (>60)
[2022-05-28] MEDS: LR 1,000 ML IV 1,000 ML IV SCH ×2 (03:00→16:06)
--- NOTE | 2022-05-28 05:58 | RAD ---
HISTORYCRITICAL ISCHEMIA RIGHT LEG Relevant Clinical InformationSTUDYCHEST, 1 VIEWCOMPARISONNoneFINDINGSThe trachea is midline. The cardiac silhouette is unremarkable. The lungs are clear without focal infiltrate or effusion. The bony thorax is unremarkable.IMPRESSIONNo acute cardiopulmonary findings .Electronically signed by: Charles Degroot (May 28, 2022 05:56:54)
[2022-05-28] MEDS ORDERED: LOVENOX INJ 40 MG SYR SC SCH (09:00)
--- NOTE | 2022-05-28 09:47 | NOTE.SOAP ---
Soap Note Note for Day of Date of Exam: 05/28/22 Subjective Data Subjective Data: Patient admitted yesterday with an ischemic right leg with ankle brachial indices of 0.4. Admitted and placed on Heparin drip. CT angiogram showed an occluded right superficial femoral artery stent. Patient also has a right popliteal stent which appears to be patient with good run off . Will plan arterial intervention tomorrow. Risk and benefits discussed with the patient. Objective Data Temperature: 97.7 F Pulse Rate: 56 Respiratory Rate: 9 Blood Pressure: 171/75 O2 Sat by Pulse Oximetry: 98 Objective Data: On heparin drip. Right foot warm this AM. No open wounds . Moves all right toes well. Assessment Assessment: Limb threatening ischemia right leg( RACIEL=0.4 both vessels at ankle) with occluded right superficial femoral artery stent. Plan Plan: see above
[2022-05-28] MEDS ORDERED: TOPROL XL PO ONE (09:54)
[2022-05-28] MEDS ORDERED: HEPARIN SODIUM INJ 5000 UNITS IVP NR (10:01)
[2022-05-28] MEDS: TOPROL XL PO SCH (10:07)
[2022-05-28] MEDS: NORVASC TAB 10 MG PO SCH (10:07)
[2022-05-28] MEDS: ACTOS PO SCH (10:08)
[2022-05-28] MEDS: NovoLIN R (or HumuLIN R) SUBCUT PRN (12:32)
[2022-05-28] MEDS: CRESTOR TAB 10 MG PO SCH (20:23)
[2022-05-28] MEDS: SNACK - Diabetic Appropriate PO SCH (20:23)
[2022-05-28] MEDS ORDERED: HEPARIN SODIUM INJ 5000 UNITS IVP ONE (22:46)
[2022-05-29] MEDS: HEPARIN SODIUM IN D5W 25,000 UNITS/500 ML BAG IV PRN (00:52)
[2022-05-29 04:36] LABS: BASOPHILS % (AUTO) 0.4 % (0.2-1.0); EOSINOPHILS # (AUTO) 0.1 x10^3/uL (0.0-0.2); EOSINOPHILS % (AUTO) 1.6 % (0.9-2.9); HEMATOCRIT 41.5 % (42.0-54.0); LYMPHOCYTES # (AUTO) 2.3 X10^3/uL (1.3-2.9); LYMPHOCYTES % (AUTO) 38.2 % (21.0-51.0); MEAN CORPUSCULAR HEMOGLOBIN 27.6 pg (27.0-34.0); MEAN CORPUSCULAR HGB CONC 33.8 g/dL (33.0-35.0); MEAN CORPUSCULAR VOLUME 81.6 fL (80.0-100.0); MEAN PLATELET VOLUME 8.1 fL (7.4-11.0); MONOCYTES # (AUTO) 0.6 x10^3/uL (0.3-0.8); MONOCYTES % (AUTO) 10.5 % (0.0-13.0); NEUTROPHILS # (AUTO) 2.9 x10^3/uL (2.2-4.8); NEUTROPHILS % (AUTO) 49.3 % (42.0-75.0); RED BLOOD COUNT 5.09 X10^6/uL (4.7-6.0); RED CELL DISTRIBUTION WIDTH 14.8 % (11.6-16.5)
[2022-05-29 04:53] LABS: ALANINE AMINOTRANSFERASE 18 Units/L (12-78); ALBUMIN 3.3 g/dL (3.4-5.0); ALKALINE PHOSPHATASE 79 Units/L (46-116); ASPARTATE AMINO TRANSFERASE 16 Units/L (15-37); BLOOD UREA NITROGEN 15 mg/dL (7-18); CALCIUM 8.7 mg/dL (8.5-10.1); CARBON DIOXIDE 28.2 mmol/L (21-32); CHLORIDE 103 mmol/L (98-107); COR CA(FOR HYPOALB) 9.3 mg/dL (8.5-10.1); COR NA(FOR HYPERGLY) 141 mmol/L (136-145); CREATININE 0.69 mg/dL (0.70-1.30); SODIUM 139 mmol/L (136-145); TOTAL PROTEIN 6.7 g/dL (6.4-8.2); eGFR NON BLACK RACES > 60 (>60)
[2022-05-29] MEDS: LR 1,000 ML IV 1,000 ML IV SCH ×2 (05:37→19:31)
[2022-05-29] MEDS ORDERED: TOPROL XL PO ONE (08:28)
[2022-05-29] MEDS: ACTOS PO SCH (08:35)
[2022-05-29] MEDS: TOPROL XL PO SCH (08:46)
[2022-05-29] MEDS: NORVASC TAB 10 MG PO SCH (08:46)
[2022-05-29] MEDS ORDERED: NS 100 ML IV 100 ML ONE (11:53)
[2022-05-29] MEDS ORDERED: ANCEF VIAL 1 GRAM ONE (11:53)
[2022-05-29] MEDS ORDERED: NS 1,000 ML IV 1,000 ML ONE ×2 (11:53→13:52)
[2022-05-29] MEDS ORDERED: FENTANYL VIAL INJ 100 mcg ONE (12:56)
[2022-05-29] MEDS ORDERED: DIPRIVAN VIAL 40 ML ONE (12:56)
[2022-05-29] MEDS ORDERED: VERSED ONE (12:56)
[2022-05-29] MEDS ORDERED: HEPARIN SODIUM INJ 5000 UNITS ONE (12:56)
[2022-05-29] MEDS ORDERED: KETAMINE HCL ONE (13:00)
[2022-05-29] MEDS ORDERED: TORADOL 30 MG VIAL ONE (13:00)
[2022-05-29] MEDS ORDERED: MARCAINE 0.5% ONE (13:00)
[2022-05-29] MEDS ORDERED: HEPARIN SODIUM IN D5W 75,000 UNITS/1,500 ML BAG ONE (13:00)
--- NOTE | 2022-05-29 14:53 | OR.IMMED ---
IMMEDIATE POST-OP NOTE Immediate Post-Op Note Pre-Op Diagnosis: limb threatening ischemia right leg, occluded right femoral ar shantal stents Post-Op Diagnosis: same Procedure: Diagnostic aortogram, diagnostic arteriogram right leg, atherectomy and drug coated balloon angioplasty right mid and distal superficial femoral artery stents Description of Procedure: see operative summary Surgeon/Construction Millwright: Gina Findings: completely occluded right SFA stents and proximal right popliteal artery, 2 vessel runoff to the ankle via right peroneal and posterior tibial arteries . Estimated Blood Loss: < 50 cc Complications: none Progress Notes: Return to floor , begin diet, begin home medications plus Xarelto and Aspirin , probably d/c home tomorrow. Final Diagnosis: as above
[2022-05-29] MEDS: SNACK - Diabetic Appropriate PO SCH (20:20)
[2022-05-29] MEDS: XARELTO PO SCH (21:57)
[2022-05-29] MEDS: CRESTOR TAB 10 MG PO SCH (21:57)
[2022-05-29] MEDS: NovoLIN R (or HumuLIN R) SUBCUT PRN (21:59)
--- NOTE | 2022-05-29 23:04 | NOTE.SOAP ---
Soap Note Note for Day of Date of Exam: 05/29/22 Subjective Data Subjective Data: Status post atherectomy and drug-coated balloon angioplasty of occluded right superficial femoral artery doing well. No rest pain of the right leg. Objective Data Temperature: 97.5 F Pulse Rate: 57 Respiratory Rate: 14 Blood Pressure: 126/58 O2 Sat by Pulse Oximetry: 99 Objective Data: Doing well. Needle stick to the left groin without ecchymosis or hemorrhage. Biphasic Doppler signal of the right posterior tibial artery. The dorsalis pedis has no signal which is expected as it is known the right anterior tibial artery is occluded. Assessment Assessment: S/P revascularization of the right leg with procedure as above . Plan Plan: Probably discharge home tomorrow on his usual medications plus Xarelto 2.5 mg BID and aspirin 81 mg daily.
[2022-05-30 05:00] LABS: BASOPHILS # (AUTO) 0.3 X10^3/uL (0.0-0.1); EOSINOPHILS # (AUTO) 0.1 x10^3/uL (0.0-0.2); EOSINOPHILS % (AUTO) 0.9 % (0.9-2.9); HEMATOCRIT 39.9 % (42.0-54.0); HEMOGLOBIN 13.5 g/dL (13.5-18.0); LYMPHOCYTES % (AUTO) 16.6 % (21.0-51.0); MEAN CORPUSCULAR HEMOGLOBIN 27.7 pg (27.0-34.0); MEAN CORPUSCULAR HGB CONC 33.9 g/dL (33.0-35.0); MEAN CORPUSCULAR VOLUME 81.8 fL (80.0-100.0); MONOCYTES # (AUTO) 0.5 x10^3/uL (0.3-0.8); MONOCYTES % (AUTO) 7.6 % (0.0-13.0); NEUTROPHILS # (AUTO) 4.2 x10^3/uL (2.2-4.8); NEUTROPHILS % (AUTO) 69.9 % (42.0-75.0); RED BLOOD COUNT 4.88 X10^6/uL (4.7-6.0); RED CELL DISTRIBUTION WIDTH 14.6 % (11.6-16.5)
[2022-05-30 05:03] LABS: BLOOD UREA NITROGEN 15 mg/dL (7-18); CALCIUM 8.9 mg/dL (8.5-10.1); CARBON DIOXIDE 29.1 mmol/L (21-32); CHLORIDE 102 mmol/L (98-107); CREATININE 0.68 mg/dL (0.70-1.30); SODIUM 138 mmol/L (136-145); eGFR NON BLACK RACES > 60 (>60)
[2022-05-30] MEDS: LR 1,000 ML IV 1,000 ML IV SCH (07:46)
[2022-05-30] MEDS ORDERED: TOPROL XL PO ONE (08:44)
[2022-05-30] MEDS: ACTOS PO SCH (08:46)
[2022-05-30] MEDS: TOPROL XL PO SCH (08:46)
[2022-05-30] MEDS: NORVASC TAB 10 MG PO SCH (08:46)
[2022-05-30] MEDS: XARELTO PO SCH (08:46)
[2022-05-30] MEDS ORDERED: ASPIRIN EC 81 MG PO SCH (09:00)
[2022-05-30] MEDS: NovoLIN R (or HumuLIN R) SUBCUT PRN (11:30)
[2022-05-30 11:33] VITALS: BP 126/59
--- NOTE | 2022-05-30 12:38 | W.DIS.FURT ---
Summary of Discharge Discharge Summary of Date Date of Exam: 05/30/22 Admission Date Date of Admission: 05/28/22 Admission Diagnosis Hospital Course: 67 year old male with ischemic right leg complaining of rest pain with ankle brachial index of approximately 0.4. History of multiple superficial femoral artery stents placed over two years ago. CT scan confirmed all of the stents were occluded. Patient was admitted and placed on a Heparin drip. On May 29 he was taken to the operative Suite where he underwent arteriogram of the right leg with atherectomy and drug-coated balloon angioplasty of the occluded right superficial femoral artery stents. He has a warm tight foot now . His right posterior tibial artery has a biphasic signal . He does have biphasic flow in the anterior tibial artery of the lower right ankle. He will be discharged home at this time on his usual home medications plus aspirin 81 mg PO daily and Xarelto 2.5 mg BID. I will see him in one week in follow up. Vital Signs: Vital Signs (72 hours) 05/28/22 09:47 05/29/22 22:40 05/27/22 16:00 Temperature 97.7 F 97.5 F L 97.7 F Pulse Rate 56 L 57 L Pulse Rate [Left Radial] 58 L Respiratory Rate 9 L 14 18 Blood Pressure 171/75 126/58 Blood Pressure [Left Arm] 140/64 Blood Pressure [Right Arm] O2 Sat by Pulse Oximetry 98 99 98 Oxygen Delivery Method Room Air 05/27/22 20:17 05/27/22 20:30 05/27/22 20:45 Temperature Pulse Rate 59 L 58 L 68 Pulse Rate [Left Radial] Respiratory Rate 17 17 23 Blood Pressure Blood Pressure [Left Arm] Blood Pressure [Right Arm] O2 Sat by Pulse Oximetry 98 97 97 Oxygen Delivery Method 05/27/22 21:00 05/27/22 21:00 05/27/22 21:15 Temperature Pulse Rate 59 L 58 L Pulse Rate [Left Radial] Respiratory Rate 19 15 Blood Pressure 163/72 Blood Pressure [Left Arm] Blood Pressure [Right Arm] O2 Sat by Pulse Oximetry 98 99 Oxygen Delivery Method 05/27/22 21:30 05/27/22 21:45 05/27/22 22:00 Temperature Pulse Rate 58 L 64 Pulse Rate [Left Radial] Respiratory Rate 11 L 20 Blood Pressure 161/73 Blood Pressure [Left Arm] Blood Pressure [Right Arm] O2 Sat by Pulse Oximetry 98 97 Oxygen Delivery Method 05/27/22 22:00 05/27/22 19:00 05/27/22 22:00 Temperature Pulse Rate 59 L Pulse Rate [Left Radial] Respiratory Rate 16 Blood Pressure 161/73 Blood Pressure [Left Arm] Blood Pressure [Right Arm] O2 Sat by Pulse Oximetry 98 Oxygen Delivery Method Room Air 05/27/22 22:00 05/27/22 22:15 05/27/22 22:30 Temperature Pulse Rate 59 L 58 L 57 L Pulse Rate [Left Radial] Respiratory Rate 16 9 L 16 Blood Pressure Blood Pressure [Left Arm] Blood Pressure [Right Arm] O2 Sat by Pulse Oximetry 98 98 97 Oxygen Delivery Method 05/27/22 22:45 05/27/22 23:00 05/27/22 23:00 Temperature Pulse Rate 55 L 56 L Pulse Rate [Left Radial] Respiratory Rate 13 16 Blood Pressure 167/74 Blood Pressure [Left Arm] Blood Pressure [Right Arm] O2 Sat by Pulse Oximetry 98 97 Oxygen Delivery Method 05/27/22 23:15 05/27/22 23:30 05/27/22 23:45 Temperature Pulse Rate 55 L 55 L 64 Pulse Rate [Left Radial] Respiratory Rate 13 13 19 Blood Pressure Blood Pressure [Left Arm] Blood Pressure [Right Arm] O2 Sat by Pulse Oximetry 98 99 98 Oxygen Delivery Method 05/28/22 00:00 05/28/22 00:00 05/28/22 00:03 Temperature 97.6 F Pulse Rate 57 L Pulse Rate [Left Radial] Respiratory Rate 10 L Blood Pressure 174/76 157/73 Blood Pressure [Left Arm] Blood Pressure [Right Arm] O2 Sat by Pulse Oximetry 98 Oxygen Delivery Method 05/28/22 00:03 05/28/22 00:15 05/28/22 00:30 Temperature Pulse Rate 59 L 59 L 56 L Pulse Rate [Left Radial] Respiratory Rate 14 17 13 Blood Pressure Blood Pressure [Left Arm] Blood Pressure [Right Arm] O2 Sat by Pulse Oximetry 98 98 98 Oxygen Delivery Method 05/28/22 00:45 05/28/22 01:00 05/28/22 01:00 Temperature Pulse Rate 56 L 56 L Pulse Rate [Left Radial] Respiratory Rate 13 15 Blood Pressure 178/77 Blood Pressure [Left Arm] Blood Pressure [Right Arm] O2 Sat by Pulse Oximetry 97 98 Oxygen Delivery Method 05/28/22 01:02 05/28/22 01:02 05/28/22 01:15 Temperature Pulse Rate 60 55 L Pulse Rate [Left Radial] Respiratory Rate 17 11 L Blood Pressure 151/70 Blood Pressure [Left Arm] Blood Pressure [Right Arm] O2 Sat by Pulse Oximetry 98 98 Oxygen Delivery Method 05/28/22 01:30 05/28/22 01:45 05/28/22 02:00 Temperature Pulse Rate 55 L 74 56 L Pulse Rate [Left Radial] Respiratory Rate 11 L 23 10 L Blood Pressure Blood Pressure [Left Arm] Blood Pressure [Right Arm] O2 Sat by Pulse Oximetry 99 98 99 Oxygen Delivery Method 05/28/22 02:01 05/28/22 02:01 05/28/22 02:02 Temperature Pulse Rate 57 L Pulse Rate [Left Radial] Respiratory Rate 13 Blood Pressure 184/78 163/73 Blood Pressure [Left Arm] Blood Pressure [Right Arm] O2 Sat by Pulse Oximetry 98 Oxygen Delivery Method 05/28/22 02:02 05/28/22 02:15 05/28/22 02:30 Temperature Pulse Rate 56 L 60 56 L Pulse Rate [Left Radial] Respiratory Rate 10 L 13 16 Blood Pressure Blood Pressure [Left Arm] Blood Pressure [Right Arm] O2 Sat by Pulse Oximetry 98 98 98 Oxygen Delivery Method 05/28/22 02:45 05/28/22 03:00 05/28/22 03:00 Temperature Pulse Rate 54 L 58 L Pulse Rate [Left Radial] Respiratory Rate 12 10 L Blood Pressure 173/76 Blood Pressure [Left Arm] Blood Pressure [Right Arm] O2 Sat by Pulse Oximetry 98 98 Oxygen Delivery Method 05/28/22 03:02 05/28/22 03:02 05/28/22 03:15 Temperature Pulse Rate 59 L 57 L Pulse Rate [Left Radial] Respiratory Rate 7 L 13 Blood Pressure 162/76 Blood Pressure [Left Arm] Blood Pressure [Right Arm] O2 Sat by Pulse Oximetry 98 98 Oxygen Delivery Method 05/28/22 03:30 05/28/22 03:45 05/28/22 04:00 Temperature 97.7 F Pulse Rate 81 58 L Pulse Rate [Left Radial] Respiratory Rate 14 14 Blood Pressure 161/72 Blood Pressure [Left Arm] Blood Pressure [Right Arm] O2 Sat by Pulse Oximetry 84 L 100 Oxygen Delivery Method 05/28/22 04:00 05/28/22 04:15 05/28/22 04:30 Temperature Pulse Rate 57 L 57 L 56 L Pulse Rate [Left Radial] Respiratory Rate 8 L 13 13 Blood Pressure Blood Pressure [Left Arm] Blood Pressure [Right Arm] O2 Sat by Pulse Oximetry 98 98 98 Oxygen Delivery Method 05/28/22 04:45 05/28/22 05:00 05/28/22 05:00 Temperature Pulse Rate 54 L 59 L Pulse Rate [Left Radial] Respiratory Rate 11 L 10 L Blood Pressure 183/82 Blood Pressure [Left Arm] Blood Pressure [Right Arm] O2 Sat by Pulse Oximetry 99 99 Oxygen Delivery Method 05/28/22 05:10 05/28/22 05:10 05/28/22 05:15 Temperature Pulse Rate 58 L 56 L Pulse Rate [Left Radial] Respiratory Rate 8 L 10 L Blood Pressure 156/74 Blood Pressure [Left Arm] Blood Pressure [Right Arm] O2 Sat by Pulse Oximetry 100 98 Oxygen Delivery Method 05/28/22 05:30 05/28/22 05:45 05/28/22 06:00 Temperature Pulse Rate 79 56 L Pulse Rate [Left Radial] Respiratory Rate 27 H 14 Blood Pressure 171/75 Blood Pressure [Left Arm] Blood Pressure [Right Arm] O2 Sat by Pulse Oximetry 99 98 Oxygen Delivery Method 05/28/22 06:00 05/28/22 10:22 05/28/22 07:00 Temperature Pulse Rate 56 L 58 L Pulse Rate [Left Radial] Respiratory Rate 9 L 13 Blood Pressure Blood Pressure [Left Arm] Blood Pressure [Right Arm] O2 Sat by Pulse Oximetry 98 98 Oxygen Delivery Method Room Air 05/28/22 07:15 05/28/22 07:30 05/28/22 07:45 Temperature Pulse Rate 56 L 72 66 Pulse Rate [Left Radial] Respiratory Rate 14 19 19 Blood Pressure Blood Pressure [Left Arm] Blood Pressure [Right Arm] O2 Sat by Pulse Oximetry 97 97 99 Oxygen Delivery Method 05/28/22 08:00 05/28/22 08:01 05/28/22 08:01 Temperature 98.6 F Pulse Rate 70 68 Pulse Rate [Left Radial] Respiratory Rate 22 18 Blood Pressure 162/117 Blood Pressure [Left Arm] Blood Pressure [Right Arm] O2 Sat by Pulse Oximetry 100 99 Oxygen Delivery Method 05/28/22 08:10 05/28/22 08:10 05/28/22 08:15 Temperature Pulse Rate 66 69 Pulse Rate [Left Radial] Respiratory Rate 21 21 Blood Pressure 128/62 Blood Pressure [Left Arm] Blood Pressure [Right Arm] O2 Sat by Pulse Oximetry 98 97 Oxygen Delivery Method 05/28/22 08:30 05/28/22 08:45 05/28/22 09:00 Temperature Pulse Rate 67 62 Pulse Rate [Left Radial] Respiratory Rate 19 14 Blood Pressure 142/66 Blood Pressure [Left Arm] Blood Pressure [Right Arm] O2 Sat by Pulse Oximetry 98 97 Oxygen Delivery Method 05/28/22 09:00 05/28/22 09:15 05/28/22 09:30 Temperature Pulse Rate 66 61 59 L Pulse Rate [Left Radial] Respiratory Rate 16 13 13 Blood Pressure Blood Pressure [Left Arm] Blood Pressure [Right Arm] O2 Sat by Pulse Oximetry 99 98 97 Oxygen Delivery Method 05/28/22 09:45 05/28/22 10:00 05/28/22 10:00 Temperature Pulse Rate 58 L 68 Pulse Rate [Left Radial] Respiratory Rate 14 18 Blood Pressure 147/66 Blood Pressure [Left Arm] Blood Pressure [Right Arm] O2 Sat by Pulse Oximetry 97 98 Oxygen Delivery Method 05/28/22 10:15 05/28/22 10:30 05/28/22 10:45 Temperature Pulse Rate 71 65 63 Pulse Rate [Left Radial] Respiratory Rate 22 18 22 Blood Pressure Blood Pressure [Left Arm] Blood Pressure [Right Arm] O2 Sat by Pulse Oximetry 98 98 98 Oxygen Delivery Method 05/28/22 11:00 05/28/22 11:00 05/28/22 11:15 Temperature Pulse Rate 61 57 L Pulse Rate [Left Radial] Respiratory Rate 16 14 Blood Pressure 144/67 Blood Pressure [Left Arm] Blood Pressure [Right Arm] O2 Sat by Pulse Oximetry 97 97 Oxygen Delivery Method 05/28/22 11:30 05/28/22 11:45 05/28/22 12:00 Temperature Pulse Rate 56 L 55 L Pulse Rate [Left Radial] Respiratory Rate 13 13 Blood Pressure 152/66 Blood Pressure [Left Arm] Blood Pressure [Right Arm] O2 Sat by Pulse Oximetry 98 99 Oxygen Delivery Method 05/28/22 12:00 05/28/22 12:15 05/28/22 12:30 Temperature Pulse Rate 58 L 59 L 67 Pulse Rate [Left Radial] Respiratory Rate 14 12 24 Blood Pressure Blood Pressure [Left Arm] Blood Pressure [Right Arm] O2 Sat by Pulse Oximetry 97 100 98 Oxygen Delivery Method 05/28/22 12:45 05/28/22 13:08 05/28/22 13:09 Temperature Pulse Rate 59 L 62 Pulse Rate [Left Radial] Respiratory Rate 16 20 Blood Pressure 159/70 Blood Pressure [Left Arm] Blood Pressure [Right Arm] O2 Sat by Pulse Oximetry 97 98 Oxygen Delivery Method 05/28/22 13:09 05/28/22 13:15 05/28/22 13:30 Temperature Pulse Rate 62 62 60 Pulse Rate [Left Radial] Respiratory Rate 24 19 18 Blood Pressure Blood Pressure [Left Arm] Blood Pressure [Right Arm] O2 Sat by Pulse Oximetry 98 99 99 Oxygen Delivery Method 05/28/22 13:45 05/28/22 14:00 05/28/22 14:00 Temperature Pulse Rate 59 L 59 L Pulse Rate [Left Radial] Respiratory Rate 16 15 Blood Pressure 143/63 Blood Pressure [Left Arm] Blood Pressure [Right Arm] O2 Sat by Pulse Oximetry 98 97 Oxygen Delivery Method 05/28/22 14:15 05/28/22 14:30 05/28/22 14:45 Temperature Pulse Rate 57 L 57 L 56 L Pulse Rate [Left Radial] Respiratory Rate 14 13 13 Blood Pressure Blood Pressure [Left Arm] Blood Pressure [Right Arm] O2 Sat by Pulse Oximetry 97 97 97 Oxygen Delivery Method 05/28/22 15:00 05/28/22 15:00 05/28/22 15:15 Temperature Pulse Rate 58 L 57 L Pulse Rate [Left Radial] Respiratory Rate 16 15 Blood Pressure 141/65 Blood Pressure [Left Arm] Blood Pressure [Right Arm] O2 Sat by Pulse Oximetry 97 97 Oxygen Delivery Method 05/28/22 15:30 05/28/22 15:45 05/28/22 16:00 Temperature Pulse Rate 67 60 Pulse Rate [Left Radial] Respiratory Rate 22 17 Blood Pressure 161/74 Blood Pressure [Left Arm] Blood Pressure [Right Arm] O2 Sat by Pulse Oximetry 74 L 98 Oxygen Delivery Method 05/28/22 16:00 05/28/22 16:15 05/28/22 16:30 Temperature 98.2 F Pulse Rate 62 63 61 Pulse Rate [Left Radial] Respiratory Rate 19 21 18 Blood Pressure Blood Pressure [Left Arm] Blood Pressure [Right Arm] O2 Sat by Pulse Oximetry 99 96 98 Oxygen Delivery Method 05/28/22 16:45 05/28/22 17:00 05/28/22 17:00 Temperature Pulse Rate 59 L 61 Pulse Rate [Left Radial] Respiratory Rate 12 17 Blood Pressure 147/69 Blood Pressure [Left Arm] Blood Pressure [Right Arm] O2 Sat by Pulse Oximetry 98 97 Oxygen Delivery Method 05/28/22 17:15 05/28/22 17:30 05/28/22 17:45 Temperature Pulse Rate 63 63 62 Pulse Rate [Left Radial] Respiratory Rate 16 19 16 Blood Pressure Blood Pressure [Left Arm] Blood Pressure [Right Arm] O2 Sat by Pulse Oximetry 97 98 98 Oxygen Delivery Method 05/28/22 18:00 05/28/22 18:15 05/28/22 20:00 Temperature 97.3 F L Pulse Rate 71 60 63 Pulse Rate [Left Radial] Respiratory Rate 29 H 17 15 Blood Pressure 150/70 Blood Pressure [Left Arm] Blood Pressure [Right Arm] O2 Sat by Pulse Oximetry 93 L 99 100 Oxygen Delivery Method Room Air 05/28/22 19:00 05/28/22 18:30 05/28/22 18:45 Temperature Pulse Rate 59 L 58 L Pulse Rate [Left Radial] Respiratory Rate 15 13 Blood Pressure Blood Pressure [Left Arm] Blood Pressure [Right Arm] O2 Sat by Pulse Oximetry 97 98 Oxygen Delivery Method Room Air 05/28/22 19:00 05/28/22 19:00 05/28/22 19:15 Temperature Pulse Rate 59 L 62 Pulse Rate [Left Radial] Respiratory Rate 14 17 Blood Pressure 154/68 Blood Pressure [Left Arm] Blood Pressure [Right Arm] O2 Sat by Pulse Oximetry 97 98 Oxygen Delivery Method 05/28/22 19:30 05/28/22 19:45 05/28/22 20:00 Temperature Pulse Rate 61 68 Pulse Rate [Left Radial] Respiratory Rate 15 16 Blood Pressure 150/70 Blood Pressure [Left Arm] Blood Pressure [Right Arm] O2 Sat by Pulse Oximetry 97 98 Oxygen Delivery Method 05/28/22 20:00 05/28/22 20:15 05/28/22 20:30 Temperature Pulse Rate 59 L 63 59 L Pulse Rate [Left Radial] Respiratory Rate 14 20 15 Blood Pressure Blood Pressure [Left Arm] Blood Pressure [Right Arm] O2 Sat by Pulse Oximetry 98 98 97 Oxygen Delivery Method 05/28/22 20:45 05/28/22 21:00 05/28/22 21:00 Temperature Pulse Rate 60 60 Pulse Rate [Left Radial] Respiratory Rate 16 14 Blood Pressure 148/67 Blood Pressure [Left Arm] Blood Pressure [Right Arm] O2 Sat by Pulse Oximetry 96 96 Oxygen Delivery Method 05/28/22 21:15 05/28/22 21:30 05/28/22 21:45 Temperature Pulse Rate 59 L 62 57 L Pulse Rate [Left Radial] Respiratory Rate 10 L 18 7 L Blood Pressure Blood Pressure [Left Arm] Blood Pressure [Right Arm] O2 Sat by Pulse Oximetry 96 98 97 Oxygen Delivery Method 05/28/22 22:00 05/28/22 22:00 05/28/22 22:15 Temperature Pulse Rate 57 L 60 Pulse Rate [Left Radial] Respiratory Rate 6 L 13 Blood Pressure 146/69 Blood Pressure [Left Arm] Blood Pressure [Right Arm] O2 Sat by Pulse Oximetry 95 99 Oxygen Delivery Method 05/28/22 22:30 05/28/22 22:45 05/28/22 23:00 Temperature Pulse Rate 55 L 53 L Pulse Rate [Left Radial] Respiratory Rate 12 13 Blood Pressure 156/72 Blood Pressure [Left Arm] Blood Pressure [Right Arm] O2 Sat by Pulse Oximetry 97 98 Oxygen Delivery Method 05/28/22 23:00 05/28/22 23:15 05/28/22 23:30 Temperature Pulse Rate 56 L 54 L 53 L Pulse Rate [Left Radial] Respiratory Rate 10 L 13 12 Blood Pressure Blood Pressure [Left Arm] Blood Pressure [Right Arm] O2 Sat by Pulse Oximetry 97 97 97 Oxygen Delivery Method 05/28/22 23:45 05/29/22 00:00 05/29/22 00:00 Temperature Pulse Rate 69 57 L Pulse Rate [Left Radial] Respiratory Rate 25 H 11 L Blood Pressure 147/68 Blood Pressure [Left Arm] Blood Pressure [Right Arm] O2 Sat by Pulse Oximetry 95 97 Oxygen Delivery Method 05/29/22 00:15 05/29/22 00:30 05/29/22 00:45 Temperature Pulse Rate 54 L 51 L 59 L Pulse Rate [Left Radial] Respiratory Rate 12 12 11 L Blood Pressure Blood Pressure [Left Arm] Blood Pressure [Right Arm] O2 Sat by Pulse Oximetry 97 97 99 Oxygen Delivery Method 05/29/22 01:00 05/29/22 01:00 05/29/22 01:15 Temperature Pulse Rate 58 L 52 L Pulse Rate [Left Radial] Respiratory Rate 16 12 Blood Pressure 166/75 Blood Pressure [Left Arm] Blood Pressure [Right Arm] O2 Sat by Pulse Oximetry 98 97 Oxygen Delivery Method 05/29/22 01:30 05/29/22 01:45 05/29/22 02:00 Temperature Pulse Rate 53 L 58 L 52 L Pulse Rate [Left Radial] Respiratory Rate 11 L 13 11 L Blood Pressure Blood Pressure [Left Arm] Blood Pressure [Right Arm] O2 Sat by Pulse Oximetry 97 98 97 Oxygen Delivery Method 05/29/22 02:01 05/29/22 02:01 05/29/22 02:15 Temperature Pulse Rate 54 L 51 L Pulse Rate [Left Radial] Respiratory Rate 12 13 Blood Pressure 149/66 Blood Pressure [Left Arm] Blood Pressure [Right Arm] O2 Sat by Pulse Oximetry 98 98 Oxygen Delivery Method 05/29/22 02:30 05/29/22 02:45 05/29/22 03:00 Temperature Pulse Rate 52 L 51 L Pulse Rate [Left Radial] Respiratory Rate 11 L 13 Blood Pressure 170/70 Blood Pressure [Left Arm] Blood Pressure [Right Arm] O2 Sat by Pulse Oximetry 98 99 Oxygen Delivery Method 05/29/22 03:00 05/29/22 03:15 05/29/22 03:25 Temperature Pulse Rate 56 L 55 L Pulse Rate [Left Radial] Respiratory Rate 9 L 13 Blood Pressure 169/70 Blood Pressure [Left Arm] Blood Pressure [Right Arm] O2 Sat by Pulse Oximetry 96 97 Oxygen Delivery Method 05/29/22 03:25 05/29/22 03:30 05/29/22 03:45 Temperature Pulse Rate 58 L 55 L 52 L Pulse Rate [Left Radial] Respiratory Rate 9 L 13 11 L Blood Pressure Blood Pressure [Left Arm] Blood Pressure [Right Arm] O2 Sat by Pulse Oximetry 99 98 98 Oxygen Delivery Method 05/29/22 04:00 05/29/22 04:00 05/29/22 04:10 Temperature 98.0 F Pulse Rate 56 L Pulse Rate [Left Radial] Respiratory Rate 7 L Blood Pressure 158/72 Blood Pressure [Left Arm] Blood Pressure [Right Arm] O2 Sat by Pulse Oximetry 97 Oxygen Delivery Method 05/29/22 04:15 05/29/22 04:30 05/29/22 04:45 Temperature Pulse Rate 66 64 58 L Pulse Rate [Left Radial] Respiratory Rate 37 H 17 17 Blood Pressure Blood Pressure [Left Arm] Blood Pressure [Right Arm] O2 Sat by Pulse Oximetry 99 97 99 Oxygen Delivery Method 05/29/22 05:00 05/29/22 05:00 05/29/22 05:15 Temperature Pulse Rate 58 L 56 L Pulse Rate [Left Radial] Respiratory Rate 14 15 Blood Pressure 158/70 Blood Pressure [Left Arm] Blood Pressure [Right Arm] O2 Sat by Pulse Oximetry 99 96 Oxygen Delivery Method 05/29/22 05:30 05/29/22 05:45 05/29/22 06:00 Temperature Pulse Rate 58 L 56 L Pulse Rate [Left Radial] Respiratory Rate 13 11 L Blood Pressure 174/81 Blood Pressure [Left Arm] Blood Pressure [Right Arm] O2 Sat by Pulse Oximetry 96 97 Oxygen Delivery Method 05/29/22 06:00 05/29/22 07:00 05/29/22 06:15 Temperature Pulse Rate 68 59 L Pulse Rate [Left Radial] Respiratory Rate 22 9 L Blood Pressure Blood Pressure [Left Arm] Blood Pressure [Right Arm] O2 Sat by Pulse Oximetry 95 99 Oxygen Delivery Method Room Air 05/29/22 06:30 05/29/22 06:45 05/29/22 07:00 Temperature Pulse Rate 52 L 55 L Pulse Rate [Left Radial] Respiratory Rate 12 13 Blood Pressure 175/78 Blood Pressure [Left Arm] Blood Pressure [Right Arm] O2 Sat by Pulse Oximetry 97 98 Oxygen Delivery Method 05/29/22 07:00 05/29/22 07:15 05/29/22 07:30 Temperature Pulse Rate 63 53 L 63 Pulse Rate [Left Radial] Respiratory Rate 12 11 L 14 Blood Pressure Blood Pressure [Left Arm] Blood Pressure [Right Arm] O2 Sat by Pulse Oximetry 98 97 99 Oxygen Delivery Method 05/29/22 07:45 05/29/22 08:00 05/29/22 08:01 Temperature Pulse Rate 58 L 57 L 58 L Pulse Rate [Left Radial] Respiratory Rate 13 9 L 14 Blood Pressure Blood Pressure [Left Arm] Blood Pressure [Right Arm] O2 Sat by Pulse Oximetry 96 96 98 Oxygen Delivery Method 05/29/22 08:01 05/29/22 08:15 05/29/22 08:30 Temperature Pulse Rate 60 58 L Pulse Rate [Left Radial] Respiratory Rate 13 6 L Blood Pressure 156/67 Blood Pressure [Left Arm] Blood Pressure [Right Arm] O2 Sat by Pulse Oximetry 99 96 Oxygen Delivery Method 05/29/22 08:45 05/29/22 09:00 05/29/22 09:01 Temperature Pulse Rate 61 56 L 61 Pulse Rate [Left Radial] Respiratory Rate 17 15 16 Blood Pressure Blood Pressure [Left Arm] Blood Pressure [Right Arm] O2 Sat by Pulse Oximetry 98 97 96 Oxygen Delivery Method 05/29/22 09:01 05/29/22 09:15 05/29/22 09:30 Temperature Pulse Rate 69 53 L Pulse Rate [Left Radial] Respiratory Rate 18 11 L Blood Pressure 153/68 Blood Pressure [Left Arm] Blood Pressure [Right Arm] O2 Sat by Pulse Oximetry 97 97 Oxygen Delivery Method 05/29/22 09:45 05/29/22 10:00 05/29/22 10:00 Temperature Pulse Rate 52 L 60 Pulse Rate [Left Radial] Respiratory Rate 12 15 Blood Pressure 140/66 Blood Pressure [Left Arm] Blood Pressure [Right Arm] O2 Sat by Pulse Oximetry 97 96 Oxygen Delivery Method 05/29/22 13:07 05/29/22 11:00 05/29/22 11:00 Temperature Pulse Rate 53 L Pulse Rate [Left Radial] Respiratory Rate 16 13 Blood Pressure 156/71 Blood Pressure [Left Arm] Blood Pressure [Right Arm] O2 Sat by Pulse Oximetry 96 Oxygen Delivery Method 05/29/22 14:37 05/29/22 14:39 05/29/22 14:39 Temperature Pulse Rate 49 L 48 L Pulse Rate [Left Radial] Respiratory Rate 18 Blood Pressure 143/63 Blood Pressure [Left Arm] Blood Pressure [Right Arm] O2 Sat by Pulse Oximetry 98 98 Oxygen Delivery Method 05/29/22 14:45 05/29/22 14:45 05/29/22 15:00 Temperature Pulse Rate 47 L Pulse Rate [Left Radial] Respiratory Rate 14 Blood Pressure 128/61 130/66 Blood Pressure [Left Arm] Blood Pressure [Right Arm] O2 Sat by Pulse Oximetry 97 Oxygen Delivery Method 05/29/22 15:00 05/29/22 15:15 05/29/22 15:15 Temperature Pulse Rate 47 L 47 L Pulse Rate [Left Radial] Respiratory Rate 17 13 Blood Pressure 151/71 Blood Pressure [Left Arm] Blood Pressure [Right Arm] O2 Sat by Pulse Oximetry 98 99 Oxygen Delivery Method 05/29/22 15:30 05/29/22 15:30 05/29/22 15:45 Temperature Pulse Rate 48 L Pulse Rate [Left Radial] Respiratory Rate 10 L Blood Pressure 146/70 154/76 Blood Pressure [Left Arm] Blood Pressure [Right Arm] O2 Sat by Pulse Oximetry 100 Oxygen Delivery Method 05/29/22 15:45 05/29/22 16:00 05/29/22 16:00 Temperature Pulse Rate 48 L 50 L Pulse Rate [Left Radial] Respiratory Rate 8 L 26 H Blood Pressure 178/81 Blood Pressure [Left Arm] Blood Pressure [Right Arm] O2 Sat by Pulse Oximetry 100 99 Oxygen Delivery Method 05/29/22 16:15 05/29/22 16:15 05/29/22 16:30 Temperature Pulse Rate 49 L 55 L Pulse Rate [Left Radial] Respiratory Rate 19 14 Blood Pressure 161/72 Blood Pressure [Left Arm] Blood Pressure [Right Arm] O2 Sat by Pulse Oximetry 100 99 Oxygen Delivery Method 05/29/22 16:30 05/29/22 14:45 05/29/22 15:00 Temperature 97.0 F L 97.7 F Pulse Rate Pulse Rate [Left Radial] 47 L 47 L Respiratory Rate 14 18 Blood Pressure 153/69 Blood Pressure [Left Arm] Blood Pressure [Right Arm] 128/61 130/66 O2 Sat by Pulse Oximetry 97 98 Oxygen Delivery Method 05/29/22 15:15 05/29/22 15:30 05/29/22 15:45 Temperature 97.2 F L 97.3 F L 97.3 F L Pulse Rate Pulse Rate [Left Radial] 47 L 48 L 48 L Respiratory Rate 13 10 L 8 L Blood Pressure Blood Pressure [Left Arm] Blood Pressure [Right Arm] 151/71 146/70 154/76 O2 Sat by Pulse Oximetry 99 100 100 Oxygen Delivery Method 05/29/22 16:45 05/29/22 17:45 05/29/22 16:43 Temperature 97.7 F 98.0 F Pulse Rate 49 L Pulse Rate [Left Radial] 52 L 54 L Respiratory Rate 21 17 13 Blood Pressure Blood Pressure [Left Arm] Blood Pressure [Right Arm] 163/74 120/58 O2 Sat by Pulse Oximetry 100 99 100 Oxygen Delivery Method 05/29/22 16:45 05/29/22 17:00 05/29/22 17:00 Temperature Pulse Rate 52 L Pulse Rate [Left Radial] Respiratory Rate 13 Blood Pressure 163/74 165/75 Blood Pressure [Left Arm] Blood Pressure [Right Arm] O2 Sat by Pulse Oximetry 99 Oxygen Delivery Method 05/29/22 17:15 05/29/22 17:15 05/29/22 17:30 Temperature Pulse Rate 60 52 L Pulse Rate [Left Radial] Respiratory Rate 15 13 Blood Pressure 171/79 Blood Pressure [Left Arm] Blood Pressure [Right Arm] O2 Sat by Pulse Oximetry 98 99 Oxygen Delivery Method 05/29/22 17:30 05/29/22 17:45 05/29/22 17:45 Temperature Pulse Rate 54 L Pulse Rate [Left Radial] Respiratory Rate 17 Blood Pressure 143/67 120/58 Blood Pressure [Left Arm] Blood Pressure [Right Arm] O2 Sat by Pulse Oximetry 99 Oxygen Delivery Method 05/29/22 18:00 05/29/22 18:00 05/29/22 18:15 Temperature Pulse Rate 56 L 55 L Pulse Rate [Left Radial] Respiratory Rate 15 15 Blood Pressure 137/63 Blood Pressure [Left Arm] Blood Pressure [Right Arm] O2 Sat by Pulse Oximetry 99 99 Oxygen Delivery Method 05/29/22 18:15 05/29/22 18:30 05/29/22 18:30 Temperature Pulse Rate 57 L Pulse Rate [Left Radial] Respiratory Rate 15 Blood Pressure 129/60 128/58 Blood Pressure [Left Arm] Blood Pressure [Right Arm] O2 Sat by Pulse Oximetry 99 Oxygen Delivery Method 05/29/22 18:45 05/29/22 19:45 05/29/22 20:00 Temperature 98.1 F 97.5 F L 97.5 F L Pulse Rate 57 L Pulse Rate [Left Radial] 57 L 57 L Respiratory Rate 15 14 14 Blood Pressure 126/58 Blood Pressure [Left Arm] Blood Pressure [Right Arm] 128/58 126/58 O2 Sat by Pulse Oximetry 99 99 99 Oxygen Delivery Method 05/29/22 19:00 05/29/22 21:00 05/29/22 22:00 Temperature Pulse Rate 56 L 67 58 L Pulse Rate [Left Radial] Respiratory Rate 16 28 H 25 H Blood Pressure 127/59 145/67 147/70 Blood Pressure [Left Arm] Blood Pressure [Right Arm] O2 Sat by Pulse Oximetry 98 98 99 Oxygen Delivery Method 05/29/22 23:00 05/30/22 00:00 05/30/22 01:00 Temperature 98.3 F Pulse Rate 57 L 56 L 56 L Pulse Rate [Left Radial] Respiratory Rate 12 10 L 11 L Blood Pressure 137/58 151/71 141/65 Blood Pressure [Left Arm] Blood Pressure [Right Arm] O2 Sat by Pulse Oximetry 98 100 100 Oxygen Delivery Method 05/30/22 02:00 05/29/22 19:00 05/30/22 03:00 Temperature Pulse Rate 52 L 58 L Pulse Rate [Left Radial] Respiratory Rate 9 L 14 Blood Pressure 143/67 137/69 Blood Pressure [Left Arm] Blood Pressure [Right Arm] O2 Sat by Pulse Oximetry 99 99 Oxygen Delivery Method Room Air 05/30/22 04:00 05/30/22 05:00 05/30/22 06:00 Temperature 98.5 F Pulse Rate 62 62 60 Pulse Rate [Left Radial] Respiratory Rate 15 15 14 Blood Pressure 159/74 143/65 144/57 Blood Pressure [Left Arm] Blood Pressure [Right Arm] O2 Sat by Pulse Oximetry 100 100 99 Oxygen Delivery Method 05/30/22 07:20 05/30/22 07:20 05/30/22 08:45 Temperature 98.0 F Pulse Rate 59 L 64 Pulse Rate [Left Radial] Respiratory Rate 18 16 Blood Pressure 155/69 171/70 Blood Pressure [Left Arm] Blood Pressure [Right Arm] O2 Sat by Pulse Oximetry 99 95 Oxygen Delivery Method Room Air Room Air Room Air 05/30/22 09:33 05/30/22 10:32 05/30/22 11:32 Temperature Pulse Rate 56 L 56 L 60 Pulse Rate [Left Radial] Respiratory Rate 18 14 14 Blood Pressure 156/71 136/62 126/59 Blood Pressure [Left Arm] Blood Pressure [Right Arm] O2 Sat by Pulse Oximetry 94 L 94 L 95 Oxygen Delivery Method Room Air Room Air Room Air Labs: Laboratory Last Values WBC 6.0 X10^3/uL (3.6-10.0) 05/30/22 04:28 RBC 4.88 X10^6/uL (4.7-6.0) 05/30/22 04:28 Hgb 13.5 g/dL (13.5-18.0) 05/30/22 04:28 Hct 39.9 % (42.0-54.0) L 05/30/22 04:28 MCV 81.8 fL (80.0-100.0) 05/30/22 04:28 MCH 27.7 pg (27.0-34.0) 05/30/22 04:28 MCHC 33.9 g/dL (33.0-35.0) 05/30/22 04:28 RDW 14.6 % (11.6-16.5) 05/30/22 04:28 Plt Count 162 X10^3/uL (150.0-450.0) 05/30/22 04:28 MPV 8.0 fL (7.4-11.0) 05/30/22 04:28 Neut % (Auto) 69.9 % (42.0-75.0) 05/30/22 04:28 Lymph % (Auto) 16.6 % (21.0-51.0) L 05/30/22 04:28 [place] % (Auto) 7.6 % (0.0-13.0) 05/30/22 04:28 Eos % (Auto) 0.9 % (0.9-2.9) 05/30/22 04:28 Baso % (Auto) 5.0 % (0.2-1.0) H 05/30/22 04:28 Neut # (Auto) 4.2 x10^3/uL (2.2-4.8) 05/30/22 04:28 Lymph # (Auto) 1.0 X10^3/uL (1.3-2.9) L 05/30/22 04:28 [place] # (Auto) 0.5 x10^3/uL (0.3-0.8) 05/30/22 04:28 Eos # (Auto) 0.1 x10^3/uL (0.0-0.2) 05/30/22 04:28 Baso # (Auto) 0.3 X10^3/uL (0.0-0.1) H 05/30/22 04:28 Absolute Nucleated RBC 0.0 /100WBC 05/30/22 04:28 PT 14.4 SECONDS (11.8-14.3) 05/27/22 12:07 INR Target Range - 05/27/22 12:07 INR 1.15 (0.8-1.3) 05/27/22 12:07 APTT > 293.0 SECONDS (22.9-36.5) H* 05/29/22 04:10 PTT Comment - 05/29/22 04:10 Sodium 138 mmol/L (136-145) 05/30/22 04:28 Corrected Sodium TNP 05/30/22 04:28 Potassium 3.7 mmol/L (3.5-5.1) 05/30/22 04:28 Chloride 102 mmol/L (98-107) 05/30/22 04:28 Carbon Dioxide 29.1 mmol/L (21-32) 05/30/22 04:28 BUN 15 mg/dL (7-18) 05/30/22 04:28 Creatinine 0.68 mg/dL (0.70-1.30) L 05/30/22 04:28 Est GFR (MDRD) Af Amer > 60 (>60) 05/30/22 04:28 Est GFR (MDRD) Non-Af > 60 (>60) 05/30/22 04:28 Glucose 107 mg/dL (65-99) H 05/30/22 04:28 POC Glucose (mg/dL) 238 mg/dL (65-99) H 05/30/22 11:14 Hemoglobin A1c 8.3 % 05/27/22 12:28 Calcium 8.9 mg/dL (8.5-10.1) 05/30/22 04:28 Corrected Calcium 9.3 mg/dL (8.5-10.1) 05/29/22 04:10 Total Bilirubin 0.90 mg/dL (0.2-1.0) 05/29/22 04:10 AST 16 Units/L (15-37) 05/29/22 04:10 ALT 18 Units/L (12-78) 05/29/22 04:10 Alkaline Phosphatase 79 Units/L (46-116) 05/29/22 04:10 Total Protein 6.7 g/dL (6.4-8.2) 05/29/22 04:10 Albumin 3.3 g/dL (3.4-5.0) L 05/29/22 04:10 Globulin 3.4 g/dL (2.5-4.5) 05/29/22 04:10 Albumin/Globulin Ratio 1.0 Ratio (1.1-2.1) L 05/29/22 04:10 Reason For Visit: right leg critical ischemia Discharge Date Discharge Date: 05/30/22 Discharge Diagnosis All Active Problems (Updated 05/27/22 @ 11:48 by Michael Fuentes) Type 2 diabetes mellitus without complications (Acute) Critical limb ischemia of right lower extremity (Acute) URI (upper respiratory infection) (Acute) Cellulitis of foot, right (Acute) Abscess of right foot (Acute) Hyperglycemia (Acute) Hypertension (Acute) Cellulitis of right foot (Acute) Uncontrolled diabetes mellitus (Acute) Neck pain (Acute) Puncture wound of foot, right (Acute) Hypertension, uncontrolled (Acute) Plan of Treatment: Continue with present treatment and follow up plan. Pt is to keep follow up appointment as instructed and take medications as ordered. Discharge Medications Discharge Medications: No Known Drug Allergies Allergy (Verified 12/04/21 11:30) CONTINUE taking the following medications amlodipine 10 mg tablet 1 tab PO QDAY 05/27/22 [History] metformin 1,000 mg tablet 1 tab PO BID 05/27/22 [History] metoprolol succinate 100 mg tablet,extended release 24 hr 1 tab PO QDAY 05/27/22 [History] pioglitazone 30 mg tablet 1 tab PO QDAY 05/27/22 [History] rosuvastatin 20 mg tablet 1 tab PO QPM 05/27/22 [History] New Prescriptions aspirin 81 mg tablet,delayed release 81 mg PO QDAY #90 tabs 05/30/22 [Rx] rivaroxaban 2.5 mg tablet (Xarelto) 2.5 mg PO BID #180 tabs 05/30/22 [Rx] Discharge Disposition Assessment: See hospital course above Discharge Plan Discharge Plan Hospital Course: 67 year old male with ischemic right leg complaining of rest pain with ankle brachial index of approximately 0.4. History of multiple superficial femoral artery stents placed over two years ago. CT scan confirmed all of the stents were occluded. Patient was admitted and placed on a Heparin drip. On May 29 he was taken to the operative Suite where he underwent arteriogram of the right leg with atherectomy and drug-coated balloon angioplasty of the occluded right superficial femoral artery stents. He has a warm tight foot now . His right posterior tibial artery has a biphasic signal . He does have biphasic flow in the anterior tibial artery of the lower right ankle. He will be discharged home at this time on his usual home medications plus aspirin 81 mg PO daily and Xarelto 2.5 mg BID. I will see him in one week in follow up. Patient Disposition: 01 HOME, SELF-CARE Condition: Stable Health Concerns: Post Hospitalization: new medications and changes needed to prevent readmission or further decline. Pt educated and given instructions on all concerns. Care Plan Goals: Problem: Altered Tissue Perfusion Goal: Adequate Tissue Perfusion Instructions: Follow provided instructions. Follow up with primary physician as directed. Contact primary care physician or report to the closest Emergency Room if condition worsens. Plan of Treatment: Continue with present treatment and follow up plan. Pt is to keep follow up appointment as instructed and take medications as ordered. Assessment: See hospital course above Prescription drug monitoring program results: PDMP reviewed and no concerns identified Prescriptions: New aspirin 81 mg tablet,delayed release (DR/EC) 81 mg PO QDAY Qty: 90 0RF Xarelto 2.5 mg tablet 2.5 mg PO BID Qty: 180 0RF Continued metoprolol succinate 100 mg tablet extended release 24 hr 1 tab PO QDAY amlodipine 10 mg tablet 1 tab PO QDAY metformin 1,000 mg tablet 1 tab PO BID pioglitazone 30 mg tablet 1 tab PO QDAY rosuvastatin 20 mg tablet 1 tab PO QPM Follow ups/Referrals Follow ups/Referrals: Michael Fuentes [STAFF PHYSICIAN] - 06/03/22 11:30 am Instructions Instructions: Atherosclerosis, Type 2 Diabetes Mellitus, Self-Care, Adult, [id number], Hypertension, Adult, [id number] Print Language: NORWEGIAN
--- NOTE | 2022-06-01 00:49 | DR.OPNOTE ---
OP NOTE Pre-Op Diagnosis: critcal right leg ischemia, occluded right sperficial femoral artery stents Post-Op Diagnosis: same Procedure Date Date Of Procedure: 05/29/22 Procedure: PROCEDURE: DIAGNOSTIC AORTOGRAM, DIAGNOSTIC ARTERIOGRAM, ATHERECTOMY AND DRUG COATED BALLOON ANGIOPLASTY OF THE OCCLUDED RIGHT SUPERFICIAL FEMORAL ARTERY STENTS IN THE MID AND DISTAL SUPERFICIAL FEMORAL ARTERY NARRATRIVE : The patient was taken to the operative suite and placed in the supine position. The left groin and entire right leg were prepped and draped in sterile fashion. The patient was administered intravenous sedation supervised by myself. Time out for the procedure obtained . Ultrasound used to identify the left femoral artery and the skin overlying it infiltrated with 0.5% Marcaine . Ultrasound then used to guide puncture of the left femoral artery and a 0.012 inch guide wire placed. Incision made over the guide wire at the skin edge with a number 11 knife blade and a micro sheath placed over the guide wire into the left femoral artery . Small guide wire exchanged for a 0.035 inch Advantage glide wire and the micro sheath exchanged for a 5 Fr vascular sheath . Omni catheter placed over the guide wire into the aorta and diagnostic aortogram carried out with the power injector showing a normal aorta and normal iliac arteries bilaterally . Omni catheter used to steer the guide wire down the right iliac artery to the distal right external iliac artery. The Omni catheter exchanged for a Beckemeyer catheter. Sequential arteriograms carried out of the right leg showing completely occluded multiple stents in the middle and distal right superficial femoral artery with reconstitution of the popliteal artery and two vessel runoff by the peroneal artery and the posterior tibial artery. The patient was given 5000 units intravenous heparin .The 5 Fr sheath in the left femoral artery exchanged for a 7 [place] destination sheath which was parked in the distal right external iliac artery. Using the Beckemeyer catheter and the 0.035 inch wire we were able to get across all of the occluded stents of the right superficial femoral artery to the popliteal artery . Arteriogram confirmed we were in the lumen of the right popliteal artery . Guide wire was placed down into the posterior tibial artery and Beckemeyer catheter advanced into the right posterior tibial artery . This was the selective catheterization. The 0.035 Advantage glide wire removed and replaced with a 0.014 inch wire. The Beckemeyer catheter removed and the [place] device placed over the 0.014 inch wire. Atherectomy carried out with two runs through the occluded stents . Distal aspect of the stents and the proximal right popliteal artery balloon dilated with a 6 mm by 200 mm [place] drug coated balloon inflating it for three minutes . The proximal portion of the stents dilated with a 6 mm by 150 m [employer] [place] drug-coated balloon dilated for three minutes and with 3mm overlap from the previous placed drug coated balloon. Post procedure arteriogram showed excellent results except for one small area in the mid portion of the stents. This was dilated again with a 7 mm by 60 mm Don balloon. Post procedure arteriogram showed excellent results. All wires and devices removed. The destination sheath pulled back into the aorta and a 0.035 inch wire placed. The destination sheath exchange for an Angioseal device which was used to close puncture of the left femoral artery. Dressing applied to the left groin in the patient taking back to the ICU. Type of Anesthesia: Local (0.5 % Marcaine ) Anesthesia Comment: plus MAC Findings: occluded right superficial femoral artery stents in the mid and distal superficial femoral artery with 2 vessel runoff via the right peroneal and posterior tibial arteries Type of Fluids Used:: Lactated Ringers Total Amount of Fluid Infused:: 700 cc Urine output: 400 cc EBL: 50 cc Complications:: none Needle/Sponge Count:: correct Disposition/Condition: Pt. tolerated procedure without difficulty. Taken to ICU in stable condition.
== END 2022-05-30 13:12 | disposition home or self-care (01) | DRG 271 ==
LOC: MED/SURG 11:03 → ICU 19:32
PROVIDERS: ADMIT Surgery; ATTEND Surgery